=== PATIENT | male | born 1950 | race Caucasian/White ===

== ENCOUNTER 2019-02-17 17:20 | Inpatient (IN) | payer OTHER ==
[~2019-02-17] VITALS: Ht 188 cm; Wt 129.3 kg
--- NOTE | 2019-02-17 | NUR ---
DR MEDEROS @ BEDSIDE. NURSING UPDATES. POC DISCUSSED. NEW ORDERS IMPLEMENTED PER INEZ NAQVI. VANCO IV DAILY W/ PO VANCO Q6H. D/C LEVOQUINN.
--- NOTE | 2019-02-17 11:30 | NUR ---
PT W/ COUGH W/ SCANT SECRETIONS. SECRETIONS BROWN/COFFEE GROUND IN COLOR. WILL ENDORSE.
--- NOTE | 2019-02-17 17:24 | NUR ---
PT BIBA FROM [facility] FOR ALOC. PER MEDIC, STAFF STATED THAT PT WAS LAST SEEN NORMAL AT 2100 LAST NIGHT. PT TODAY WAS FOUND AT APPROX 1600 WITH ALOC AND COMBATIVE WITH STAFF. PER MEDIC, FACILITY CALLED FOR BLS TRANSPORT TO HOSPITAL. PER MEDIC, UPON ARRIVAL PT WAS HYPOTENSIVE WITH SYSTOLIC IN 70'S AND O2 AT 76% ON RA. 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 PER MEDIC, STAFF STATED THAT PT HAD TWO EPISODES OF VOMITING WITH DARK, COFFEE, GROUND LIKE SUBSTANCE. PT ARRIVED AND IS UNABLE TO KEEP HIS EYES OPEN. WHEN ASKED PT QUESTIONS, HE CONTINUALLY SAYS NO; PT UNABLE TO FOLLOW COMMANDS. PUPILS ARE SLUGGISH AT 2MM; CONNECTED TO FULL CARDAIC MONITOR, O2.
--- NOTE | 2019-02-17 17:33 | NUR ---
RT AT BEDSIDE
[2019-02-17 17:59] LABS: BASOPHIL % 0.3 % (0-2); PLATELET COUNT 262 x10^3mcL (130-400)
[2019-02-17 18:00] LABS: RED CELL DISTRIBUTION WIDTH 21.7 % (11.5-14.5)
--- NOTE | 2019-02-17 18:10 | NUR ---
XRAY AT BEDSIDE
[2019-02-17 18:18] LABS: BILIRUBIN TOTAL 0.7 mg/dL (0.20-1.00); POTASSIUM SERUM 3.1 mmol/L (3.5-5.1); TOTAL PROTEIN, SERUM 7.3 g/dL (6.4-8.2)
[2019-02-17 18:24] LABS: ALBUMIN 2.5 g/dL (3.4-5.0); CARBON DIOXIDE 7.9 mmol/L (21-32); CREATININE SERUM 8.2 mg/dL (0.7-1.3)
--- NOTE | 2019-02-17 18:47 | NUR ---
PT PLACED IN PLACED IN [place]; AWARE
--- NOTE | 2019-02-17 18:57 | NUR ---
MAT PRIMARY RN AWARE OF PT CONDITION
--- NOTE | 2019-02-17 19:03 | NUR ---
MD REYES AT BEDSIDE TO SPEAK WITH PT'S ABOUT CENTRAL LINE.
--- NOTE | 2019-02-17 19:10 | NUR ---
PT TO CT VIA [facility] AT THIS TIME.
--- NOTE | 2019-02-17 19:12 | NUR ---
PT SIGNED CONSENT FOR CENTRAL LINE PLACEMENT AND VERBALIZED NO QUESTIONS OR CONCERNS AT THIS TIME
[2019-02-17 19:45] LABS: UA SPECIFIC GRAVITY >=1.030 (1.005-1.035); microscopic required? YES; urine erythrocyte 2+ (NEGATIVE)
--- NOTE | 2019-02-17 19:59 | NUR ---
CENTRAL LINE IN PLACE, PATENT AND INTACT.
--- NOTE | 2019-02-17 20:05 | NUR ---
XRAY AT BESIDE TO CONFIRM CENTRAL LINE PLACEMENT.
--- NOTE | 2019-02-17 20:39 | NUR ---
ASKED PT IF HE IS IN ANY PAIN, PT SHOUTED "NO!" REMAINS AT BEDISDE, CALL LIGHT IN REACH PT AND EDUCATED ON HOW TO USE. FLUIDS INFUSING AT THIS TIME. CENTRAL LINE PATENT AND INTACT.
--- NOTE | 2019-02-17 20:48 | NUR ---
REPORT GIVEN TO INEZ MCGRATH TO ASSUME CARE.
--- NOTE | 2019-02-17 20:50 | NUR ---
RECIEVED REPORT FROM ED RN. AWAITING PT ARRIVAL.
[2019-02-17 20:53] LABS: T3 TOTAL 0.72 ng/mL
[2019-02-17] MEDS ORDERED: VASOTEC20 MG PO (20:53)
[2019-02-17] MEDS ORDERED: METFORMIN HYDR500 M1 PO (20:54)
[2019-02-17] MEDS ORDERED: HYDROCHLOROTH12.5 M2 PO (20:54)
[2019-02-17] MEDS ORDERED: PROTONIX20 MG PO (20:54)
[2019-02-17] MEDS ORDERED: TENORMIN50 MG PO (20:54)
[2019-02-17 21:07] LABS: AMPHETAMINE QUAL UR NONE DETECTED (See below)
[2019-02-17 21:14] LABS: FREE T4 1.35 ng/dL (0.76-1.46); FREE THYROXINE INDEX 2.5 ug/dL (1.4-4.5); T4(THYROXINE) 6.4 ug/dL (4.7-13.3)
--- NOTE | 2019-02-17 22:07 | NUR ---
DOPAMINE STARTED AT 10MCG PER MD ORDER.
--- NOTE | 2019-02-17 22:19 | NUR ---
PT RESP E/U WITH EYES CLOSED; PT REMAINS CONNECTED TO FULL CM. NO DISTRESS. AT BEDSIDE. CENTRAL LINE PATENT; INTACT.
[2019-02-17 22:40] LABS: CHOLESTEROL/HDL RATIO 5.2
[2019-02-17 22:43] LABS: PHOSPHOROUS 10.3 mg/dL (2.5-4.9)
--- NOTE | 2019-02-17 23:00 | NUR ---
PT ARRIVED FROM ED ACCOMPANIED BY RN+EMT. NURSING UPDATES. TRANSFERED CARE OF PT. A&OX2. UNABLE TO FOLLOW COMMANDS. SPEECH GARBLED. PERRL 3MM GENEVIEVE. LUNG SOUNDS UNABLE TO AUSC PER DISTANT. BREATHING EVEN AND LABORED. PT ON RA @ 97%. EENT FREE OF DISCHARGE. HEART SOUNDS DISTANT. HR 111. BP 153/115(122). NO S/S OF CHEST PAIN. PULSES WEAK X4 EXTREMETIES. SKIN COOL/DRY. NO EDEMA NOTED DOPA INSUFING @ 10MCG/KG/MIN. NS INFUSING @ 100ML/HR. BS ACTIVE X4Q. ABD OBESE. SKIN COOL AND DRY. HX R FOOT ULCER DRESSING C/D/I. FAMILY @ BEDSIDE.
--- NOTE | 2019-02-17 23:54 | NUR ---
DR MEDEROS @ BEDSIDE. NURSING UPDATES. POC DISCUSSED. AWAITING ORDERS.
[2019-02-18] VITALS (7 sets, daily range): BP systolic 89–153; BP diastolic 50–115
--- NOTE | 2019-02-18 01:00 | NUR ---
PT AGITATED AND VERBAL HARASSMENT. CALMING MEASURES IMPLEMENTED. PT CALMED DOWN. WILL CONT TO MONITOR.
--- NOTE | 2019-02-18 01:30 | NUR ---
PT REFUSED ORAL VANCO. DISCUSSED REASONING AND IMPORTANCE FOR MEDICATION. PT STILL REFUSED. WILL ENDORSE.
--- NOTE | 2019-02-18 04:55 | NUR ---
COMMERCIAL COLLECTIONS DRIVER @ BEDSIDE FOR AM LABS.
--- NOTE | 2019-02-18 05:00 | NUR ---
NOTIFIED OF CDIFF PRECAUTIONS. SHE STATED SHE KNOWS THE PRECAUTIONS AND INFORMED FOR CDIFF. NOTED AND WILL ENDORSE. STATED SHE WOULD SIT NEXT TO HIM W/O PPE AND USE IT WHEN INVOLVED IN CARE.
[2019-02-18 05:04] LABS: PLATELET COUNT 267 x10^3mcL (130-400)
[2019-02-18 05:15] LABS: BAND NEUTROPHIL 2 % (0-10); MONOCYTE 5 % (0-7); SEGMENTED NEUTROPHILS 86 % (37-75)
[2019-02-18 05:19] LABS: acanthocyte (spur cell) 1+; rbc morphology (normal/abnorm) ABNORMAL (NORMAL)
[2019-02-18 05:24] LABS: RED CELL DISTRIBUTION WIDTH 20.9 % (11.5-14.5)
[2019-02-18 05:59] LABS: CALCIUM 7.3 mg/dL (8.5-10.1); MAGNESIUM 1.8 mg/dL (1.8-2.4); PHOSPHOROUS 8.8 mg/dL (2.5-4.9)
[2019-02-18 06:01] LABS: POTASSIUM SERUM 2.6 mmol/L (3.5-5.1)
--- NOTE | 2019-02-18 06:02 | NUR ---
NOTIFIED PER LAB K+ 2.6, CO2 9.0, BUN 106, CREAT 8.0. DR GUZMAN MADE AWARE. AWAITING NEW ORDERS.
--- NOTE | 2019-02-18 06:22 | NUR ---
DR GUZMAN @ BEDSIDE. NURSING UPDATES. AWAITING NEW ORDERS.
--- NOTE | 2019-02-18 07:35 | NUR ---
SPOKE WITH DR GLOVER VIA TELEPHONE AND READ BACK CURRENT ORDERS.
--- NOTE | 2019-02-18 07:36 | NUR ---
US TECH AT BEDSIDE PERFORMED US BLE SUMAN AND US RENAL. PT'S AT BEDSIDE. PT IS ABLE TO FOLLOW SIMPLE COMMAND.
--- NOTE | 2019-02-18 08:15 | NUR ---
PADIATRISTS AT BEDSIDE ASSESSING PT'S WOUND ON LEFT HEEL AND CHANGING DRESSING, BLE COLD, PEDAL PULSES WEAK WITH DOPLER. PT COUGHED OUT SMALL AMOUNT EMESIS, CLEAN WITH SUCTION, RED BROWN COLOR.
--- NOTE | 2019-02-18 12:15 | NUR ---
PT'S BP 118/63 (81), 93 BPM, LOWER DOPAMINE FROM 10 MCG/KG /HR TO 8MCG. REST WELL, EASILY AROUSED WITH VERBAL AND EYES OPENING RESPONSE. PT VERBALLY REFUSED TO TAKE VANCO PO. PT'S AT BEDSIDE. PT HAD BM, DARK BROWN, LOOSE. STOOL SPECIMEN COLLECTED FOR STOOL CX.
--- NOTE | 2019-02-18 14:15 | NUR ---
ROSS RN ATTEMPTING TO PROVIDED PATIENT WITH ORAL MEDICATIONS. PATIENT TELLING ROSS TO "SHUT THE FUCK UP" SHE WAS EDUCATING PATIENT THE NEED FOR TAKING MEDICATIONS. I ENTERED ROOM AND ASKED PATIENT NOT TO USE FOUL LANGUAGE WITH NURSING STAFF THEY ARE ATTEMPTING TO HELP HIM. PATIENT DIRECTED HIS GAZE AT ME AND STATED "SHUT THE FUCK UP AND GET OUT OF MY ROOM." ATTEMPTED TO EDUCATE PATIENT REGARDING USE OF LANGUAGE AND PATIENT CONTINUED TO REFUSE MEDICATION AND USE FOUL LANGUAGE UNTIL NURSING LEFT THE ROOM.
--- NOTE | 2019-02-18 14:35 | NUR ---
DR GLOVER AT BEDSIDE TO ASSESS PATIENT. PATIENT UPDATES PROVIDED BY NURSING. NO FAMILY AT BEDSIDE.
--- NOTE | 2019-02-18 15:24 | NUR ---
PATIENT HAS REMOVED CARDIAC MONITORING EQUIPMENT AGAIN. WHEN IN TO ROOM AND ATTEMPTED TO PLACE NEW LEADS AND PULSE OXIMETRY ON PATIENT. I PLACED THE LEADS BACK ON, PATIENT REMOVED THEM ONE BY ONE. EDUCATION PROVIDED REGARDING DONNING CARDIAC EQUIPMENT AND PATIENT TOLD ME TO "SHUT THE FUCK UP." DR Daniels MADE AWARE.
[2019-02-18 15:36] LABS: CALCIUM 6.2 mg/dL (8.5-10.1); CARBON DIOXIDE 10.1 mmol/L (21-32)
[2019-02-18 15:47] LABS: POTASSIUM SERUM 2.7 mmol/L (3.5-5.1)
[2019-02-18 15:48] LABS: CREATININE SERUM 7.6 mg/dL (0.7-1.3)
--- NOTE | 2019-02-18 15:52 | NUR ---
PT GETTING MORE RESTLESS, PULLED OUT TWO PERIPHERAL IV LINES. REORIENTED PT BUT NOT WORK. PT TRYING TO PULL CHAN CATHETER. GENEVIEVE HAND MITTEN APPLED AT THIS TIME. PT'S BP 113/68. TITRADED DOPAMINE FROM 8MCG/KG TO 6 MCG/KG/HR. PT KEEP REMOVING HR MONITOR LEADS AND PULSE OX SEVERAL TIMES AFTER EACH TIMES EDUCATION. PT SAYING "GET OUT MY ROOM, SHUT UP." EVERYTIME.
--- NOTE | 2019-02-18 17:32 | NUR ---
PT'S BP 85/55 MAP 61, TITRATE UP DOPAMINE FROM 6MCG/KG/MIN TO 8MCH/KG/MIN.
--- NOTE | 2019-02-18 19:19 | NUR ---
REPORT GIVEN TO RECEIVING NURSE. PT REST ON BED, REFUSED TO PUT TELE MONIOTR BACK ON. PT BREATHING ON RA EVEN, UNLABORED. DOPAMINE IS INFUSING AT 8MCG/KG/MIN AT THIS TIME. IVF D5 1/2NS 20MEQ KCL WITH BICAR INFUSING AT 100ML/HR. URINE OUTPUT 150ML, TIM.
--- NOTE | 2019-02-18 19:20 | NUR ---
RECEIVED REPORT FROM ROSS WILEY. WILL RESUME CARE.
--- NOTE | 2019-02-18 20:56 | NUR ---
PT NONCOMPLIANT WITH TAKING ORAL MEDICATION, MIDODRINE 10MG PO. MADE PT AWARE OF RISKS/BENEFITS. PT STILL REFUSED AND AGITATED SAYING "LEAVE ME ALONE".
--- NOTE | 2019-02-19 00:06 | NUR ---
PT PULLING OFF STRIKE OUT MACHINE OPERATOR LEADS. MULTIPLE ATTEMPTS MADE TO PLACE NEW ONES ON AND PT CONTINUES TO PULL THEM OFF. EXPLAINED IMPORTANCE OF THEM TO PT AND PT STATES "I DON'T CARE".
--- NOTE | 2019-02-19 03:11 | NUR ---
DOPAMINE GTT TITRATED DOWN FROM 8MCG/KG/MIN TO 6MCG/KG/MIN. BP 106/73. MAP 84.
[2019-02-19 03:17] VITALS: BP 106/73
--- NOTE | 2019-02-19 04:05 | NUR ---
PULP MAKER AT BEDSIDE FOR BLOOD DRAW.
[2019-02-19 04:35] LABS: BASOPHIL % 0.2 % (0-2); PLATELET COUNT 166 x10^3mcL (130-400)
[2019-02-19 04:47] LABS: CALCIUM 6.7 mg/dL (8.5-10.1); CARBON DIOXIDE 12.7 mmol/L (21-32); MAGNESIUM 1.6 mg/dL (1.8-2.4); PHOSPHOROUS 5.5 mg/dL (2.5-4.9)
[2019-02-19 04:49] LABS: ALBUMIN 2.4 g/dL (3.4-5.0)
[2019-02-19 04:50] LABS: CREATININE SERUM 6.8 mg/dL (0.7-1.3); POTASSIUM SERUM 2.7 mmol/L (3.5-5.1)
[2019-02-19 04:57] LABS: RED CELL DISTRIBUTION WIDTH 21.1 % (11.5-14.5)
--- NOTE | 2019-02-19 06:00 | NUR ---
DR. GUZMAN AT BEDSIDE ASSESSING PT. UPDATES PROVIDED. MADE AWARE OF LAB VALUES K+ 2.7, BUN 107, CREAT 6.8.
--- NOTE | 2019-02-19 06:24 | NUR ---
CHEST X-RAY BEING DONE AT BEDSIDE.
--- NOTE | 2019-02-19 07:08 | NUR ---
GAVE REPORT TO CHACHA WILEY. ALL QUESTIONS AND CONCERNS ADDRESSED.
[2019-02-19 07:15] VITALS: BP 107/56
--- NOTE | 2019-02-19 07:15 | NUR ---
THE PATIENT LETHARGIC; CLOSING EYES. PATIENT RESPONSIVE TO VERBAL STIMULI WITH GARBLED SPEECH. PATIENT DISORIENTED AT THIS TIME. PATIENT AGGRESSIVE AND COMBATIVE TO THE STAFF. PATIENT REFUSES TO HAVE FULL ASSESSMENT. UNABLE TO CHECK PUPILS AT THIS TIME. CVC TO RIGHT IJ WITH DRESSING IN PLACE. PATIENT IS ON D5 1/2NS WITH 20 MEQ KCL AND SODIUM BICARB 1000ML AT 100ML/HR. AND DOPAMINE AT 6MCG/KG/MIN. CVP 6. TELE # 4 WITH AFIB READING AT THIS TIME. CHAN CATH TO GRAVITY DRAINING YELLOW URINE. OPTIFOAM TO SACRAL-BUTTOCK AREA. DRESSING TO RIGHT HEEL INTACT. HEEL PROTECTORS TO BOTH HEELS. CALL LIGHT WITHIN REACH. SIDE RAILS UP X3. BED IS AT LOWEST POSITION. THE IS AT BEDSIDE.
--- NOTE | 2019-02-19 10:00 | NUR ---
DR. MARQUEZ AND THE TEAM ARE AT BEDSIDE SEEING THE PATIENT. DR. MARQUEZ IS EXPLAINING THE POC TO THE AT BEDSIDE. CONCERNS ADDRESSED.
--- NOTE | 2019-02-19 10:11 | NUR ---
SPOKE WITH DR GLOVER VIA TELEPHONED. NEW ORDERS RECEIVED AND READ BACK. ENDORSED TO DR. Daniels WHO WILL INPUT ORDERS.
--- NOTE | 2019-02-19 10:17 | NUR ---
PT WAS SEEN FOR DYSPHAGIA. PT WAS ABLE TO SAFELY SWALLOW PUREE DIET WITH NECTAR THICK LIQUIDI. PT HAD MILD COUGH FOR THIN LIQUID. RECOMMENDATION PUREE DIET WITH NECTAR THICK LIQUID SMALL BITES AND SIPS 1:1 SUPERVISION.
[2019-02-19 11:30] VITALS: BP 100/67
--- NOTE | 2019-02-19 12:56 | NUR ---
ATTEMPTING TO EXPLAIN THE EFFECTS OF VANCO, PHOSLO AND MIDODRINE PO AND ENCOURAGING THE PATIENT TO TAKE THE MEDS BUT THE PATIENT REFUSED TO TAKE THEM AND SAID, "SHUT UP. GET OUT." THE , BRIDGET IS AT BEDSIDE AND WITNESSED THIS.
--- NOTE | 2019-02-19 13:30 | NUR ---
THE PATIENT FOUND PICKING TO HIS PENILE AREA SEVERAL TIMES SINCE THIS MORNING.
--- NOTE | 2019-02-19 13:30 | NUR ---
THE PHARMCY WAS CALLED TWICE AND REQUESTED FOR SODIUM BICARB IN 1/2NS 250ML TO ADMINISTER TO THE PATIENT BECAUSE THE FIRST DOSE SHOULD BE AT 1200. DONNA, THE SECURITY SYSTEMS SALES REPRESENTATIVE SAID, "THE MED WILL BE DELIVERED WHEN IT IS AVAILABLE." THE MED JUST WAS DELIVERED AT 1322. THE MED WAS MIXED AND GIVEN TO THE PATIENT AT 1330 FOR THE 1ST DOSE. PHARMACISTIVAN WAS MADE AWARE.
--- NOTE | 2019-02-19 15:02 | NUR ---
THE BP 108/66 AND MAP 80; DOPAMINE DRIP WAS TITRATED FROM 6MCG/KG/MIN DOWN TO 4MCG/KG/MIN.
--- NOTE | 2019-02-19 15:30 | NUR ---
ENDORSE CARE TO RHYS BARTHOLOMEW RN.
[2019-02-19 16:00] VITALS: BP 95/49
--- NOTE | 2019-02-19 16:00 | NUR ---
PATIENT WAS CLEANSED AND GIVEN A BED BATH. PHOTOGRAPH OF SACRAL BUTTOCK AND PERIANAL AREAS WAS TAKEN; THE SITE WERE CLEANSED WITH WOUND CLEANSER, Z-GUARD APPLIED BEFORE NEW OPTIFOAM APPLIED. ABDOMINAL FOLD AND INGUINAL WITH REDNESS AND EXCORIATION: PHOTOGRAPH TAKEN, THE SITE WAS CLEANSED AND INTERDRY APPLIED. ISOGEL MATTRESS SET UP FOR THE PATIENT.
--- NOTE | 2019-02-19 16:02 | NUR ---
NURSING STAFF CHACAH AND STEFF ATTEMPTING TO CLEAN PATIENT HE IS SOILD WITH STOOL. PATIENT REFUSING TO ALLOW NURSING TO CHANGE PATIENT. EDUCATION PROVIDED REGARDING SKIN BREAKDOWN BUT PATIENT REFUSING TO LISTEN CURSING AT STAFF. I SPOKE WITH PATIENT AND HE CONNTINUED TO BE BELIGERENT, CURSING AT MYSELF AND NURSING. NURSING WAS ABLE TO DISTRACT PATIENT LONG ENOUGH TO CLEAN STOOL AND PROVIDE PERICARE. Z-GUARD AND OPTIFOAM PLACED ON SACRAL/BUTTOCK REGION D/T IMPAIRED SKIN INTEGRITY.
--- NOTE | 2019-02-19 16:55 | NUR ---
DR GLOVER PRESENT AT BEDSIDE. UPDATED ON PT CURRENT STATUS.
[2019-02-19 17:36] LABS: CALCIUM 6.7 mg/dL (8.5-10.1); CARBON DIOXIDE 12.9 mmol/L (21-32)
[2019-02-19 17:44] LABS: POTASSIUM SERUM 2.6 mmol/L (3.5-5.1)
[2019-02-19 17:45] LABS: CREATININE SERUM 6.1 mg/dL (0.7-1.3)
--- NOTE | 2019-02-19 18:00 | NUR ---
BP 107/61 (78), HR 92, DOPAMINE TITRATED DOWN TO 2MCG/KG/MIN
--- NOTE | 2019-02-19 18:30 | NUR ---
DR FREEMAN PRESENT AT BEDSIDE DISCUSSING POC. UPDATED ON PT CURRENT STATUS, ALL QUESTIONS ANSWERED
--- NOTE | 2019-02-19 19:08 | NUR ---
RECEIVED REPORT FROM CHACHA WILEY. WILL RESUME CARE.
[2019-02-19 19:25] VITALS: BP 104/47
--- NOTE | 2019-02-19 19:25 | NUR ---
RECEIVED PT LETHARGIC. AAOX1 TO PERSON. PT IS NONCOMPLIANT WITH CARE AT TIMES AND COMBATIVE. BREATHING E/U. LUNG SOUNDS CONGESTED AND DIMINISHED TO LOWER LOBES. ON RA, 02SAT 100%. S1S2 AUSCULATED WITH NO MURMURS NOTED. A FIB ON FISH HOUSEKEEPER. DOPAMINE GTT AT 2MG/KG/MIN. D5 1/2 NS/KCL 20MEQ/SODIUM BICARB RUNNING AT 100CC/HR. RIJ CVC TRIPLE LUMEN PATENT AND INTACT, DRESSING CDI. CAP REFILL < 3 SEC. PULSES MODERATE TO BUE AND WEAK TO BLE. R HEEL ULCER, DRESSING CDI. OPTIFOAM TO SACRUM, CDI. REDNESS AND SKIN BREAKDOWN NOTED TO ABDOMINAL FOLDS, Z GUARD APPLIED AND INTERDRY IN PLACE. BOLSTER BOOTS TO BLE. BED IN LOW POSITION. BONY PROMINENCES OFFLOADED. CALL LIGHT WITHIN REACH. WILL CONTINUE TO MONITOR.
[2019-02-19 23:21] VITALS: BP 102/54
[2019-02-20] VITALS (7 sets, daily range): BP systolic 90–109; BP diastolic 53–64
--- NOTE | 2019-02-20 02:30 | NUR ---
LAB CALLED, PT TESTED POSITIVE FOR MRSA. DR. AC MADE AWARE.
--- NOTE | 2019-02-20 04:20 | NUR ---
PT HAD LARGE LOOSE DARK BROWN BM. PT CLEANED AND ALL LINENS CHANGED. CHAN CATHETER CARE PROVIDED. 650CC OF URINE OUTPUT NOTED. CHG WIPES TO RIJ. PT REFUSING TO LET ME PROVIDE ORAL CARE. FLOATED ON PILLOWS. BOLSTER BOOTS TO BLE. BED IN LOW POSITION. CALL LIGHT WITHIN REACH.
--- NOTE | 2019-02-20 04:35 | NUR ---
COAL DRIER OPERATOR AT BEDSIDE FOR BLOOD DRAW.
[2019-02-20 04:43] LABS: BASOPHIL % 0.2 % (0-2)
[2019-02-20 04:49] LABS: PLATELET COUNT 122 x10^3mcL (130-400); RED CELL DISTRIBUTION WIDTH 22.6 % (11.5-14.5)
[2019-02-20 05:01] LABS: CALCIUM 6.7 mg/dL (8.5-10.1); CARBON DIOXIDE 18.2 mmol/L (21-32); MAGNESIUM 1.3 mg/dL (1.8-2.4); PHOSPHOROUS 3.6 mg/dL (2.5-4.9)
[2019-02-20 05:27] LABS: CREATININE SERUM 5.4 mg/dL (0.7-1.3); POTASSIUM SERUM 2.7 mmol/L (3.5-5.1)
--- NOTE | 2019-02-20 06:00 | NUR ---
DR. GUZMAN AT BEDSIDE ASSESSING PT. UPDATES PROVIDED.
--- NOTE | 2019-02-20 07:08 | NUR ---
GAVE REPORT TO EDWIGE WILEY. ALL QUESTIONS AND CONCERNS ADDRESSED.
--- NOTE | 2019-02-20 07:10 | NUR ---
RECEIVED PT RESTING BUT EASILY AROUSABLE. AT BEDSIDE. AAOX2. LETHARGIC BUT AGGRESSIVE AND COMBATIVE. SPEECH CLEAR. PERRL. RIJ TLC CVC INTACT, X3 PORTS PATENT, DRESSING CDI. TRACHEA MIDLINE. NO JVD PRESENT. ON ROOM AIR. RESPS ARE E/U. SYMMETRICAL CHEST WALL EXPANSION NOTED. MUCOUS CONGESTED COUGH AUDIBLE. NO S/S OF RESP DISTRESS. AFIB ON MOBILE SALES EXPERT. SKIN IS COOL/DRY TO TOUCH, COLOR CONSISTENT WITH ETHNICITY. PT MORBIDLY OBESE. ABD IS LARGE, ROUNDED, NONTENDER. UMBILICAL HERNIA NOTED. F/C INTACT AND DRAINING VIA GRAVITY. URINE IS TIM IN COLOR. NO SCROTAL EDEMA NOTED. INVERTED PENIS NOTED. STAGE 3 ULCER TO SACRALCOCCYX AREA WITH OPTIFOAM IN PLACE. ECCHYMOSIS TO BUE. DIABETIC R HEEL ULCER NOTED WITH DRESSING CDI. ERYTHEMA TO ABD FOLDS WITH INTERDRY APPLIED. HEEL PROTECTOR BOOTS APPLIED, ISOGEL MATTRESS IN USE, BED IN LOWEST POSITION, X3 SIDE RAILS UP, CALL LIGHT WITHIN REACH.
--- NOTE | 2019-02-20 07:10 | NUR ---
RECEIVED REPORT FROM APARNA WILEY. ALL QUESTIONS AND CONCERNS ADDRESSED. WILL RESUME CARE OF PT.
--- NOTE | 2019-02-20 08:24 | NUR ---
ASKED PT IF HE IS ABLE TO TAKE HIS MEDICATIONS AND HE SLOWLY STATED "NO". AT BEDSIDE AND COMMUNICATED TO HER THE IMPORTANCE OF THE PO MEDICATIONS. SHE IS AWARE AND STATED THAT "HE WILL NOT TAKE ANY PO MEDICATIONS. HE WILL JUST THROW THEM UP AND START GAGGING. I DON'T WANT HIM TO TAKE THEM." PT AND PT'S EDUCATED OF IMPORTANCE OF MEDICATIONS AND THE RISKS OF NOT TAKING THEM. PT'S VERBALLY STATED UNDERSTANDING.
--- NOTE | 2019-02-20 08:35 | NUR ---
DOPAMINE TURED OFF AT THIS TIME. PT BP MAP OF 80.
--- NOTE | 2019-02-20 09:43 | NUR ---
INITIATED DOPAMINE GTT @ 2 MCG/KG/MIN TO ACHEIEVE MAP OF 65. . PT'S BP OF 91/51 (58).
--- NOTE | 2019-02-20 10:01 | NUR ---
DR. MARQUEZ AND RESIDENTS AT BEDSIDE. ALL QUESTIONS AND CONCERNS ADDRESSED. NO NEW ORDERS AT THIS TIME.
--- NOTE | 2019-02-20 11:39 | NUR ---
DR. RICH AT BEDSIDE ASSESSING PT. UPDATES PROVIDED. LAYLA STATES FOR CVP TO BE DISCONTINUED. AND ONCE DOPAMINE GTT IS ABLE TO BE TITRATED OFF, PT IS ABLE TO GO UPSTAIRS. WILL CARRY OUT ORDERS.
--- NOTE | 2019-02-20 12:00 | NUR ---
TITRATED DOPAMINE GTT TO 1 MCG/KG/MIN TO ACHEIVE MAP OF 65. PT'S MAP OF 83.
--- NOTE | 2019-02-20 12:11 | NUR ---
Initial Nutrition Assessment: IC04/A ROBERT MURPHY HR Dx: Sepsis, PNA, Acute renal failure PMHx: HTN, DM, GERD, CKD Stage IIIa PSHx: Other, Exploratory Laparotomy for intussusception at 1 years old Labs: K 2.7L, BG 155H, BUN 96H, CREAT 5.4H, Ammonia 44H, WBC 11.3H Meds: D 50%, Flagyl, humulin, Pepcid, phoslo, zofran Diet: NPO (risk for aspiration) since 02/18 PO Intake: NPO Ht: 187.96 cm (74") Wt: 273 kg (600#) BMI: 77.5 kg/m2 (morbid obesity) Bed scale: 273.9 kg IBW: 190# (86 kg) %IBW: 315 UBW: unable to access Age: 68/M Food Allergies: NKFA Skin: erythema to sacral-buttock area, R heel ulcer wrapped w/ dressing Clyde: 13 Edema: none GI: Last BM: 02/20 Per H&P, Pt is a 68 yoM with PMH of HTN, DM, GERD, and CKD Stage IIIa, came with cc of Altered Mental Status. Pt was BIBA from Health system yesterday evening. Pt's stated that Pt was altered since yesterday morning. Pt has not been eating much the past 1 month with only clear liquids for the past week. RDN Visit (02/20): Patient was sleeping. Per RN, Pt. does not have any N/V but has diarrhea as he is C.diff positive. Per FAUCET POLISHER note (02/19), Pt is cleared for puree diet with nectar thick liquid. Per RN and Dr. Alarcon, pt is refusing to eat any food and pt. may be feed through NG tube feeding. Per progress note (02/20), Pt refusing all PO medications, pulling cardiac monitoring, abusive with nursing staff. Problem with: N/V/D/C: diarrhea d/t c.diff Problems with: Chewing/Swallowing: yes (FAUCET POLISHER recommended puree w/ nectar thick) Current appetite: unable to access Recent wt change: unable to access %wt change: n/a Vitamin/Supplement use: unable to access Special diet at home: unable to access Physical activity: unable to access Nutrition education given: not possible at this time as pt is sleeping, NPO Food-drug interactions: none Education given: n/a Estimated Nutritional Needs Based on adjusted body weight 132 kg Energy: 9297-1045 kcal/d (25-30 kcal/kg) Protein: 79-105 g/d (0.6-0.8 g/kg) - CKD stage 3 Fluid: per doctor Nutrition Diagnosis 1. Inadequate oral intake related to possible poor appetite as evidenced by pt. refusing to eat, NPO status. 2. Morbid obesity related to increased energy intake as evidenced by BMI 77.5 kg/m2. Intervention 1. Recommend tube feeding Vital AF 1.2 @ 10 ml/hr with goal of 70ml/hr. Advance by 10 ml Q 4H. FWF 200ml Q4H or per MD. This will provide 2020 kcal and 126g protein. Discussed recommendations with Dr. Alarcon. Monitor/Evaluate Goal: PO intake at least 75% of estimated needs Monitor: PO intake, Labs, GI function F/U in 2-3 days as high risk 02/22-
--- NOTE | 2019-02-20 12:26 | NUR ---
DR. ODOM AT BEDSIDE ASSESSING PT. HE SPOKE TO PT'S ABOUT POC AND CONDITION OF PT AND THE NEED FOR DIALYSIS SINCE PT IS NOT URINATING MUCH. PT'S DENIES HD AT THIS TIME.
--- NOTE | 2019-02-20 12:51 | NUR ---
FIRST 20 MEQ K-RIDER GIVEN AT THIS TIME FOR K+ REPLACEMENT
--- NOTE | 2019-02-20 13:25 | NUR ---
RT AT BEDSIDE FOR BREATHING TX. PT BECOMING COMBATIVE AND AGGRESSIVE AND TAKING OFF EQUIPMENT. PT REFUSING TREATMENT AGAIN.
--- NOTE | 2019-02-20 15:15 | NUR ---
SAW WARP TYING MACHINE TENDER, JOSE RN, AND EDWIGE RN AT BEDSIDE TO HELP CLEAN PT. PT HAD A MODERATE DARK BROWN GEL-LIKE STOOL. NEW OPTIFOAM PUT IN PLACE, ZGUARD APPLIED TO BUTTOCKS, SHEETS AND CHUCKS CHANGED, CHG WIPES APPLIED, CHAN CARE COMPLETED. PT TOLERATED WELL. HOWEVER, PT VERY RESTLESS AND COMBATIVE TELLING NURSES TO "GET THE F*CK AWAY FROM ME." AND TO "SHUT THE F*CK UP".
--- NOTE | 2019-02-20 15:35 | NUR ---
SPOKE TO DR. JANKI Sanders AND DR. POPE TO CLARIFY ORDER FOR RIGHT HEEL WOUND.
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
--- NOTE | 2019-02-20 16:03 | NUR ---
PT REFUSING TO HAVE BLOOD SUGAR CHECKED, REFUSING TO PUT BACK O2 SAT MONITOR, AND REFUSING TO TAKE HIS PHOSLO MEDICATION. DR. GUZMAN MADE AWARE OF PT'S STATUS AND REFUSAL OF CARE. NO NEW ORDERS AT THIS TIME.
--- NOTE | 2019-02-20 16:21 | NUR ---
WOUND CARE EVALUATION NOTE: REASON FOR EVALUATION: RIGHT HEEL ULCER SKIN ASSESSMENT DONE WITH THIS 68 Y/O MALE PT. ADMITTED FROM [facility] TO [facility] [place] WITH INITIAL DX OF AMS. PAST HX INCLUDES, HTN, DM, GERD CKD AND RIGHT HEEL DIABETIC FOOT ULCER WITH S/P DEBRIDEMENT. PT ADMITTED WITH PRESSURE ULCER STAGE 3 TO SACRALCOCCYX AREA. ALL ABOVE INFORMATION OBTAINED FROM ADMISSION H&P. AND . IS AAX4. PT IS RESTLESS AND REQUIRE 4 PERSONS ASSIST FOR TURNING AND POSITIONING. SKIN WARM AND MOIST, INCONTINENT OF LBM X1 DURING ASSESSMENT. MULTIPLE ECCHYMOSIS TO UPPER EXTREMITIES. BLE NO HAIR GROWTH, NO EDEMA. HEEL RAISERS TO BILATERAL HEELS. DORSAL PEDAL PULSES PRESENT. PLAN OF CARE DISCUSSED WITH , AND PRIMARY RN. VERBALIZES UNDERSTANDING, STATED THAT SHE IS AWARE OF PRESSURE ULCER TO SACRALCOCCYX AREA. RIGHT HEEL DIABETIC ULCER NOT ASSESS THIS TIME, PER PRIMARY RN RIGHT HEEL DRESSING CHANGED BY PODIATRY. COMORBIDITIES RELATED TO FURTHER SKIN BREAKS AND DELAY WOUND HEALING INFECTION, ACUTE RENAL FAILURE, LOW ALBUMIN LEVEL, RESTLESS BEHAVIOR /FRICTION TO SKIN AND HOB ELEVATED THE MAJORY OF TIMES DUE TO MEDICAL REASONS. INTEGUMENTARY: -RIJ CENTERAL LINE DRESSING DCI -LEFT HAND MULTIPLE ECCHYMOSIS POSSIBLE FROM BLOOD DRAW -RIGHT CHEST OLD HEALED SCAR -INTERTRIGO TO LOWER ABDOMINAL FOLD SKIN MOIST, REDNESS WITH A SPUERFICIAL OPEN SKIN 0.5X3CM, WOUND BED PINK, MOIST, NO ODOR, DEJUAN WOUND SKIN INTACT WITH REDNESS. -SACRALCOCCYX PRESSURE ULCER STAGE 3, 2X1X0.2 CM, WOUND BED IS 100% GRANULATING TISSUE, MOIST, NO ODOR, DEJUAN-WOUND SKIN DENUDED WITH SURROUNDING REDNESS INDICATED FURTHER DAMAGE -RIGHT HEEL DIABETIC ULCER DRESSING DRY CLEAN AND INPLACE. RECOMMENDATIONS: -PLEASE FOLLOW PODIATRY ORDER FOR RIGHT HEEL CARE -RECTAL BAG FOR MOISTURE CONTROL -CLEANSE ABDOMINAL FOLD WITH SOAP AND WATER, PAT DRY, APPLY INTER DRY CLOTH Q5 DAYS AND PRN IF SOILING. -CLEANSE WITH SOAP AND WATER, PAT DRY, APPLY Z GUARD BID AND PRN IF SOILING TO BUTTOCKS, GROINS, INNER AND POSTERIOR THIGHTS AND PINEAL AREA -CLEANSE SACRALCOCCYX WITH NS. PAT. DRY APPLY THERAHONEY GEL AND COVER WITH OPTIFOAM QD AND PRN IF SOILING -APPLY HEEL RAISERS TO BILATERAL HEELS WHEN IN BED -OFFLOAD BILATERAL HEELS BY PLACING PILLOWS UNDER CALVES UNLESS OTHERWISE CONTRAINDICATED -PRESSURE REDISTRIBUTION SURFACE THERAPY -TURN AND REPOSITION Q2H, OFFLOAD BUTTOCKS AND SACRALCOCCYX -CONTINUE TO FOLLOW RD RECOMMENDATIONS ALL ABOVE RECOMMENDATIONS DISCUSSED WITH PRIMARY RN WILL FOLLOW UP PT Q7-10 DAYS. PLEASE CONTACT WOUND CARE NURSE IF CHANGE OF SKIN CONDITION
--- NOTE | 2019-02-20 17:06 | NUR ---
DOPAMINE GTT TURNED OFF AT THIS TIME. PT'S MAP OF 72.
--- NOTE | 2019-02-20 17:30 | NUR ---
PT RIJ TLC CVC LEAKING FLUID FROM SITE. TRIED TO FLUSH PORTS AND FLUIDS LEAKING SIMULTANEOUSLY. DR. GUZMAN NOTIFIED AND SUGGESTED PICC LINE FOR PT. SPOKE TO PT AND PT'S ABOUT PICC LINE PLACEMENT AND BOTH HAVE AGREED TO IT. CONTACTED PICC LINE NURSE ABOUT SERVICE FOR PT AND STATED THAT THEY WILL CALL THE UNIT BACK WITH AN ESTIMATED TIME OF ARRIVAL. ALL IV FLUIDS AND MEDICATIONS STOPPED AT THIS TIME.
--- NOTE | 2019-02-20 19:04 | NUR ---
GROUP REPORT GIVEN TO CATHERINE WILEY AND SARITA WILEY. ALL QUESTIONS AND CONCERNS ADDRESSED.
--- NOTE | 2019-02-20 19:50 | NUR ---
CALLED PICC RN [facility] SERVICE LINE TO FOLLOW UP WITH PICC LINE PLACEMENT. NO ANSWER AT THIS TIME, MESSAGE WAS LEFT TO FOLLOW UP.
--- NOTE | 2019-02-20 20:24 | NUR ---
RT AT BEDISDE ADMINISTERING BREATHING TREATMENT. PT IS VERY UNCOOPERATIVE AND VERBALLY AGRESSIVE TOWARDS RT. AT BEDSIDE ASSISTING RT IN CALMING PT
--- NOTE | 2019-02-20 20:50 | NUR ---
SPOKE WITH ASIF, PICC LINE RN VIA PHONE AND HE REQUESTED PERMISSION FROM [facility] TO P[ERFORM PROCEDURE. SPOKE WITH DR BYERS AND SHE STATED THAT SHE WILL WAIT UNTIL THE MORNING TO CONTACT DR ODOM AND WILL PERFORM PROCEDURE TOMMOROW MORNING. CONTACTED PICC LINE RN ASIF VIA PHONE AND NOTIFOED HIM THAT THE PROCEDURE WILL BE DELAYED UNTIL TOMORROW AM.
--- NOTE | 2019-02-20 21:08 | NUR ---
PT REFUSED IV AND PO MEDICAITONS. PT REFUSED IV ATTEMPT AND STATED THAT HE DOES NOT WANT TO TAKE ANY MEDICATIONS
--- NOTE | 2019-02-20 23:43 | NUR ---
DR MEDEROS AT BEDSIDE FOR CONSULT. REQUESTED PSYCHIATRIC CONSULT
--- NOTE | 2019-02-20 23:44 | NUR ---
SPOKE WITH DR BYERS AND ADVISED THAT DR MEDEROS REQUEST PSYCHIATRIC CONSULT
--- NOTE | 2019-02-21 04:10 | NUR ---
LAB AT BEDSIDE FOR DRAW
--- NOTE | 2019-02-21 06:09 | NUR ---
PT REFUSED ABG.
[2019-02-21 07:00] VITALS: BP 105/59
--- NOTE | 2019-02-21 07:00 | NUR ---
RECEIVED PT AAOX4. NONCOMPLIANT AND AGGRESSIVE. NO FACIAL DROOP NOTED. SPEECH IS CLEAR. EENT FREE OF DISCHARGE. TRACHEA MIDLINE. RIJ CVC NOT INTACT D/T PT TAKING OUT LINE YESTERDAY. PT REFUSING TO TAKE OUT CENTRAL AT THIS TIME. ON ROOM AIR. RESPIRATIONS ARE EVEN AND UNLABORED. SYMMETRICAL CHEST WALL EXPANSION NOTED. NO S/S OF RESP DISTRESS NOTED. AFIB WITH LBBB AND OCCASSIONAL PVCS NOTED ON MODEL MAKER FIBERGLASS. NO S/S OF CP AT THIS TIME. NO EDEMA NOTED. SKIN IS WARM/DRY TO TOUCH, COLOR CONSISTENT WITH ETHNICITY. PT IS MORBIDLY OBESE. ABD IS LARGE AND ROUNDED. UMBILICAL HERNIA NOTED. F/C INTACT AND DRAINING VIA GRAVITY. URINE IS TIM IN COLOR. NO SCROTAL EDEMA NOTED. ERYTHEMA NOTED TO ABD FOLDS WITH INTERDRY APPLIED. STAGE 3 ULCER TO SACRALCOCCYX WITH OPTIFOAM IN PLACE. R HEEL ULCER NOTED WITH DRESSING CDI. HEEL BOOTS APPLIED TO BLE. PT ON ISOGEL MATTRESS. PT VERY RESISTIVE AND NONCOMPLIANT WITH CARE. AT BEDSIDE.
--- NOTE | 2019-02-21 07:00 | NUR ---
RECEIVED REPORT FROM CATHERINE WILEY. UPDATES PROVIDED, ALL QUESTIONS AND CONCERNS ADDRESSED. WILL RESUME CARE OF PT.
--- NOTE | 2019-02-21 07:30 | NUR ---
UPON ENTERING PT'S ROOM, PT'S NOT WEARING PPE'S. EDUCATED PT'S ON THE IMPORTANCE OF THE USE OF PPE'S DUE TO PT'S C.DIFF AND MRSA DX. PT'S VERBALIZED UNDERSTANDING. HOWEVER, PT'S ROLLED HER EYES AND DID NOT PUT THE GOWN, MASK, OR GLOVES FULLY ON.
[2019-02-21 07:55] VITALS: Ht 188 cm; Wt 129.3 kg
--- NOTE | 2019-02-21 08:34 | NUR ---
PREPARING FOR MED PASS AT THIS TIME. EDUCATED PT ON MEDICATIONS THAT ARE ORDERED FOR THIS MORNING AND THE IMPORTANCE OF THEM. PT REFUSING TO TAKE ALL MEDICATIONS. EDUCATED PT ON THE RISKS OF NOT TAKING THEM AND STILL REFUSING TO TAKE MEDICATIONS. WILL NOTIFY COVERING ATTENDING AND RESIDENTS. WILL CONT TO MONITOR.
--- NOTE | 2019-02-21 09:40 | NUR ---
DR. ODOM AT BEDSIDE ASSESSING PT AND DISCUSSING POC. DISCUSSED IMPORTANCE OF PICC LINE INSERTION TO PT. PT AND BOTH AGREED TO PROCEDURE. PICC LINE TEAM CALLED AND KARIN FROM COMPANY STATED THAT ELVI WILL BE CALLING BACK WITH ESTIMATED TIME OF ARRIVAL WILL BE.
--- NOTE | 2019-02-21 09:55 | NUR ---
DR. GERMAN AND RESIDENTS AT BEDSIDE ASSESSING PT. UPDATES PROVIDED. STATED OK FOR PT TO BE TRANSFERRED UPSTAIRS.
--- NOTE | 2019-02-21 10:05 | NUR ---
DR. GERMAN, RESIDENTS, LAYOUT FORMER AND PRIMARY RN AT BEDSIDE FOR MORNING ROUNDS. PLAN OF CARE DISCUSSED. PT STABLE TO TRANSFER TO [facility] TODAY. WILL CONT TO MONITOR.
--- NOTE | 2019-02-21 10:40 | NUR ---
PT AND PT'S CONTINUE TO REFUSE AM LABS AT THIS TIME DESPITE REPEATED EDUCATION.
--- NOTE | 2019-02-21 11:05 | NUR ---
PER DR. RICH D/C BIPAP ORDER.
[2019-02-21 11:13] VITALS: BP 97/61
--- NOTE | 2019-02-21 11:25 | NUR ---
PICC LINE NURSE CALLED AT THIS TIME ASKING IF DR. ODOM CLEARED PT FOR PICC LINE PLACEMENT. WILL BE ARRIVING SOON.
--- NOTE | 2019-02-21 11:28 | NUR ---
PT REFUSING TO HAVE BLOOD SUGAR CHECKED. EDUCATED PT THE IMPORTANCE AND THE RISKS OF NOT CHECKING BS LEVELS. VERBALIZES UNDERSTANDING. NO S/S OF HYPOGLYCEMIA NOTED. PT AWAKE AND ALERT AND WATCHING TV IN BED WITH AT BEDSIDE. WILL NOTIFY RESIDENTS.
--- NOTE | 2019-02-21 11:58 | NUR ---
DR. RICH REQUESTING TO PUT A PERIPHERAL IV AND A STERILE DRESSING TO [facility] CVC. WENT INTO PT'S ROOM TO SEE THAT HE REMOVED HIS CARDIAC ELECTRODES. EDUCATED PT ON THE IMPORTANCE OF KEEPING THEM ON FOR CARDIAC MONITORING. ASKED PT IF I CAN INSERT A PERIPHERAL IV AND TO PUT A DRESSING ON THE SITE. PT SAID "NO, DO NOT TOUCH ME." DR. RICH NOTIFIED. WILL CONT TO MONITOR.
--- NOTE | 2019-02-21 12:30 | NUR ---
PICC LINE NURSE AT BEDSIDE.
--- NOTE | 2019-02-21 13:15 | NUR ---
PICC LINE INSERTED INTO PT WITH NO COMPLICATIONS WITH US AT BEDSIDE. CXR ORDERED.
--- NOTE | 2019-02-21 13:30 | NUR ---
CXR AT BEDSIDE.
--- NOTE | 2019-02-21 13:45 | NUR ---
PICC LINE NURSE ATTEMPTED TO PUT IN PICC HOWEVER CANNOT GO THROUGH THE SUBCLAVIAN. PICC LINE NURSE INSERTED MIDLINE TO R UPPER ARM AT THIS TIME.
--- NOTE | 2019-02-21 13:51 | NUR ---
PICC LINE NURSE STATES OK TO USE MIDLINE CATH AT THIS TIME.
--- NOTE | 2019-02-21 14:11 | NUR ---
PT AGREED TO TAKE OUT RIJ CENTRAL LINE. CENTRAL LINE REMOVED AT THIS TIME WITH NO COMPLICATIONS. SITE HELD WITH PRESSURE AND 4X4 DRESSIN. MINIMAL BLOOD FROM SITE. DRESSING CDI.
[2019-02-21 15:10] VITALS: BP 118/61
--- NOTE | 2019-02-21 15:54 | NUR ---
REPORT GIVEN TO ROSINA WILEY. ALL QUESTIONS AND CONCERNS ADDRESSED. PT WILL BE GOING TO ROOM 217-B. WILL NOTIFY PT'S .
--- NOTE | 2019-02-21 17:25 | NUR ---
PT SAFELY TRANSPORTED TO [address] [place] [address] VIA ICU BED ACCOMPANIED BY AYUSH ERAZO, PT'S , AND EDWIGE WILEY. NO COMPLICATIONS. NO ACUTE DISTRESS NOTED FROM PT. ROSINA WILEY AND HIDE AND SKIN CLASSER AT BEDSIDE ASSESSING PT. WILL ENDORSE CARE.
--- NOTE | 2019-02-21 17:40 | NUR ---
RECEIVED PT FROM IC VIA [employer]. PT AA/OX4. FOLLOWS COMPLEX COMMANDS, RESPONDS TO VERBAL STIMULI, FACE SYMMETRICAL, SPEECH CLEAR. DENIES PAIN AT THIS TIME. NO N/V. DENIES SOB ON ROOM AIR. VS STABLE. CONGESTED COUGH NOTED. FINE/COARSE CRACKLES HEARD BILATERAL LOBES, DIMINISHED BILATERAL BASES. RR EVEN/SHALLOW/LABORED WITH EXERTION. NO CHEST PAIN, PT ON TELE 30, AFIB WITH BBB AND PVCS. PULSES +2 BUE, WEAK PULSES NOTED BLE. NO EDEMA NOTED. CAP REFILLS <3 SEC BUE/BLE. NO TENTING NOTED. ABDOMEN SOFT, ROUND, NON-DISTENDED. BOWEL SOUNDS ACTIVE. ASPIRATION PRECAUTIONS IN PLACE. HOB ELEVATED >45 DEGREES. HAD BM X 1 TODAY. CHAN IN TACT DRAINING DARK TIM URINE. GENERALIZED WEAKNESS NOTED. ASSISTED PT TO REPOSITION. WOUND TO SACRUM COVERED BY OPTIFOAM CDI. PT REFUSED ASSESSMENT OF SACRUM AT THIS TIME. DRESSING TO RLE CDI. PT REFUSED SKIN ASSESSMENT OF WOUND. PT REPORTS SENSATION WNL TO BUE/BLE. ABLE TO MOVE TOES AND FINGERS. MIDLINE TO RUE IN TACT WITH IV FLUIDS FLOWING, SITE WNL. DRESSING CDI. PORTS PATENT AND FLUSH WELL. ERYTHEMA NOTED TO ABD. FOLDS. INTERDRY IN PLACE. CONTACT PLUS PREC IN PLACE. AT BEDSIDE. PT REFUSES SCDS AT THIS TIME. FALL PREC IN PLACE. SITTER AT BEDSIDE. BED IN LOW POSITION. CALL LIGHT WITHIN REACH. WILL CONTINUE TO MONITOR.
[2019-02-21 17:43] VITALS: BP 114/66
--- NOTE | 2019-02-21 18:41 | NUR ---
PT LAYING IN BED. AA/OX4. DECLINED TO PO AND IV MEDICATIONS AT THIS TIME. PHYSICIAN AWARE OF PT NONCOMPLIANCE. PT AGITATED. STATES, "I DON'T NEED THOSE, YOU GUYS ARE PILL PUSHERS." NO S/S OF ACUTE DISTRESS. NO SOB ON ROOM AIR. MIDLINE IN TACT TO RUE, DRESSING CDI. CHAN IN TACT DRAINING TIM URINE TO GRAVITY. NO DEPENDENT LOOPS. HOB ELEVATED. SUCTION AT BEDSIDE. PREVALON BOOTS IN PLACE BLE. BED IN LOW POSITION. CONTACT PREC IN PLACE. SITTER AT BEDSIDE. BED IN LOW POSITION. CALL LIGHT WITHIN REACH. WILL ENDORSE TO ONCOMING SHIFT.
--- NOTE | 2019-02-21 19:25 | NUR ---
RECEIVED PT AOX3 ABLE TO RESPOND TO COMMANDS AND MAKE NEEDS KNOWN, MUMBLES WORDS, APPEARS DROWSY, NONCOMPLIANT. EASILY AROUSABLE. PUPILS PERRLA.TRACHEA MIDLINE, NO DRAINAGE TO EENT. NO EENT COMPLAINTS. LUNG SOUNDS CLEAR TO BUL, DIMINISHED BASES. CHEST RISE/FALL SYMMETRIC E/U BREATHING, DENIES SOB. NO ACUTE RESP DISTRESS, ON ROOM AIR.AFIB WITH BBB AND OCCASIONAL PVC'S. DENIES CHEST PAIN. ON TELE MONITOR. CAP REFILL <3 SEC, PULSES MODERATE TO BUE, WEAK TO BLE. NO EDEMA. MIDLINE TO RIGHT UPPER EXTREMITY, PATENT X2, D5 1/2 NS INFUSING @ 75 CC/HR. GEN WEAKNESS. PT REFUSING TURN Q2H. JOINTS INTACT. NO CONTRACTURES OR DEFORMITIES.PUREE DIET, NO S/S OF N/V.OBESE. ABD SOFT/ROUND. ACTIVE BOWEL SOUNDS X4 QUADRANTS, NO BM AT THIS TIME.F/C DRAINING TO GRAVITY TIM URINE, INTACT/SECURED. NO SCROTAL EDEMA OR DISCHARGE NOTED.ERYTHEMA TO ABD FOLDS WITH INTERDRY DRESSING IN PLACE. ULCER TO RIGHT HEEL DRESSING CDI. STAGE 3 PRESSURE ULCER, OPTIFOAM TO SACRUM CDI. HEELBOOTS BLE. PT UNCOOPERATIVE WITH NURSING STAFF AT TIMES AND NONCOMPLIANT. REFUSES MEDICATIONS AND CARE. AT BEDSIDE UPDATED ON POC. BED AT LOWEST SETTING, CALL LIGHT WITHIN REACH, HOB ELEVATED 45 DEGREES. WILL CONT TO MONITOR.
[2019-02-21 20:35] VITALS: BP 124/68
--- NOTE | 2019-02-22 02:02 | NUR ---
PT AWAKE/ALERT AT THIS TIME WATCHING TELEVISION. NO ACUTE DISTRESS, DENIES SOB. FOUND TELEMONITOR REMOVED, EDUCATED ON TELE MONITOR AND PLACED BACK ON. FOUND GOWN REMOVED, PLACED GOWN BACK ON.
[2019-02-22 05:00] VITALS: BP 137/80
--- NOTE | 2019-02-22 05:02 | NUR ---
PT SLEEPING BUT EASILY AROUSABLE, NO ACUTE DISTRESS, DENIES SOB. PT REFUSING BLOOD DRAW AT THIS TIME, RESIDENT MADE AWARE. CHEST RISE/FALL SYMMETRIC, E/U BREATHING, NO ACUTE RESP DISTRESS.
--- NOTE | 2019-02-22 07:15 | NUR ---
GAVE REPORT TO INEZ MARTINEZ. UPDATES PROVIDED, JUDE ANSWERED.
[2019-02-22 09:23] VITALS: BP 101/66
--- NOTE | 2019-02-22 09:49 | NUR ---
RECIEVED PATIENT WHO IS AGITATED AT TIMES AND IS ALREADY DEFENSIVE ABOUT HIS CARE. SHAY CRA BEEN OIN ISOLATION FO RMRSA OF THE WOUND AND NARES. C DIF AND ESBL AND MDRO. PATIENT AHS A DRESSIN TOT HE RIGHT FOOT INTAT AND DRY WITH GREG AND ELVEATED ON PILLOW IDNIATED. APTIEN TAHS A RASH TO THE FOLDS OT THE ABDOMEN ANDIS FUNGAL IN APPEARANCE. SHAY TORREHW A MIDLINE CATH AND PATENT AT THIS TIME. VITAS ARE AT 97.9M, 85, 18, 101/66, 97% ON ROOM AIR. APICONSTANCE CAR BEEN RECIEVING HHN AND SHAY CAR SOME FINE RALES TO HET LUNGSA N DA DYR UNJPRODUCTIF WECOUGH NOTED. SHAY CAR HEAD OF BED UP AND IS WITH NOTED ATERY STOOLS DUE TO C DIFF. APTIENT AHS A SACRAL DRESSING DUE TO WOUND OF THE SACRAL AERA AND HAS NUMBEROUS SCARRING WOT T ALEGS AND ABDOME. CRISPIN CAR BEEN ON VACO PO AND IV FLAGYL ORDERED. HE HAS MERREN AT NIGHT AND NO ADVERSE RECTION NOTED. PATIENT HAD NOTED PREVIOUS LABS OF THE POTASSIUM, MAGNESIUM AND BUN AND CREATININE, BUT REFUSED BLOOD DRW THIS AM. HE HAS ALSO REFUSED RADIOLOGY THIS AM. WILL CONTINUE TO MONITOR INDICATED.
--- NOTE | 2019-02-22 12:31 | NUR ---
BLOOD SUGAR AT 1130 AT 135 AND NO COVERAGEINDIATED. AT BEDSIDE. PATENT HAS IDLINE BUT PATIENT PER XRAY SHOWS CURLING UP AND PATIENT HAD RFUSED THIS AM XRAY.
[2019-02-22 12:39] VITALS: BP 101/60
--- NOTE | 2019-02-22 13:39 | NUR ---
PATIEBT DENIES ANY PAIN AND NO SIGNS OF INFILTRATE TO THE MIDLINE CATH. IV STOPPED INDICATED DUE TO PATIENT XRAY SHOWS THE LINE IS FOLDED BACK ON ITSELF. PATIETN HAS NO PAIN TO THE ARM AND HAS TOLEATED MEDICATION SO FAR ORALLY. BLOOD SUGAR AT NOON AT 135 AND AT BESIDE AND SUPPORTIVE WITH CARE. AWAITIGN UPDATE ON ORDERS
--- NOTE | 2019-02-22 17:10 | NUR ---
SPOKE WITH THE PIC LINE NURSE AND HE IS TO ARRIVE AROUND 7PM FOR POSITIONING OF THE MID LINE CATH. PATIENT HAD NO ADVERSE REACTION TO THE FLUID GIVEN AND DR IS AWARE OF THE XRAY RESULTS. LEFT BUT WILL RETURN IN A FEW HOURS. PATEINT IS RESTING QUIETLY AND NO ACUTE DISTRESS NOTED.
--- NOTE | 2019-02-22 17:57 | NUR ---
BLOOD SUGAR AT 122 AND GAV ETHE MEDICATION PER THE PATIENT IN HIS ICE WATER. PATIENT HS BEEN RESTING MOST OF THE DAY. OFFERED TO CHANGE HIS FOOT DRESSING BYUT AGAIN REFUSED AND WANTS HIS TO DO.
[2019-02-22 17:59] VITALS: BP 128/72
--- NOTE | 2019-02-22 19:30 | NUR ---
RECIEVED PT FROM DAY NURSE MICHELLE, ASSESSMENT PERFORMED AT THIS TIME, PT DENIES PAIN OR SOB AT THIS TIME, PT IS A/OX4, DENIES JERNIGAN OR DIZZINESS, PT SPEAKS CLEARLY AND ABLE TO MAKE NEEDS KNOWN, PT IS IRRITATED AND RESSISTANT TO CARE AT THIS TIME, SAFETY PRECAUTIONS IN PLACE, WILL CONTINUE TO MONITOR
--- NOTE | 2019-02-22 20:15 | NUR ---
PT REFUSING PICC NURSE TO ADJUST PICC LINE
--- NOTE | 2019-02-22 20:25 | NUR ---
TALKED TO PATIENT AND PATIENT AGREED TO ALLOW PICC NURSE TO ADJUST PICC LINE, PICC NURSE ADJUSTED PICC LINE AND XRAY CALLED TO CHECK FOR PLACEMENT.
[2019-02-22 21:01] VITALS: BP 110/63
--- NOTE | 2019-02-22 21:10 | NUR ---
CONTACTED DR BARRERA ABOUT VERIFYING PICC TO AUTHORIZE FOR USE, SAID IT WAS OK TO HOLD PRILOSEC SINCE NO OTHER LINE IS PLACED AND PT REFUSING IV INSERTION. DR BARRERA SAID SHE WITH CHECK TO SEE IF ITS OK TO USE PICC
--- NOTE | 2019-02-22 22:27 | NUR ---
DR BARRERA OKAYED USE OF PICC EVEN THOUGH XRAY IMPRESSION RECOMENDED TO ADVANCE PICC 25CM
--- NOTE | 2019-02-23 00:10 | NUR ---
PT RESTING IN BED WITH AT BEDSIDE, PT DENIES PAIN AT THIS TIME, PT DENIES SOB AT THIS TIME, PT IS STILL REFUSING FOR ME CHANGE OPTIFOAM ON COCCYX OR DRSSING ON RIGHT FOOT. ALL NEEDS ATTENDED TO SAFETY PRECAUTIONS IN PLACE, WILL CONTINUE TO MONITOR
--- NOTE | 2019-02-23 02:50 | NUR ---
PT RESTING IN BED WITH EYES CLOSED, AT BEDSIDE, PT EASILY AROUSABLE TO VERBAL STIMULI, PT DENEIS PAIN AT THIS TIME, ALL NEEDS ATTENDED TO SAFETY PRECAUTIONS IN PLACE, WILL CONTINUE TO MONITOR
--- NOTE | 2019-02-23 04:00 | NUR ---
PT NOW PERMITED ME TO CHANGE SACRAL COCCYGEAL DRESSING, REMOVED SOILED DRESSING, CLEANSED AND APPLIED THERAHONEY GEL TO WOUND AND REPLACED WITH NEW DRESSING, PT REFUSED THE CHANGING OF RIGHT HEEL DRESSING, THE PATIENT ALSO REFUSED THE APPLICATION OF BILATERAL HEEL PROTECTORS, EACH FOOT IS OFFLOADED WITH PILLOW, AND PATIENTS WIEGHT IS REDISTRIBUTED WITH PILLOWS, CLEANSED EXCORIATION OF ABD AND GROIN FOLDS PATTED DRY AND APPLIED INTERDRY T ABD AND GROIN FOLDS, APPLIED ZGUARD TO AFFECTED AREAS
--- NOTE | 2019-02-23 05:11 | NUR ---
PT RESISTED TREATMENT THROUGH MOST OF SHIFT AND REFUSED MOST OF CARE, PT EDUCATED TO THE IMPORTANCE OF CARE PLAN BUT STILL REFUSED ALL MEDICATIONS ASIDE FROM ABX, PT REFUSED WOUND CARE UNTIL THIS AM AND ALLOWED FOR SOME WOUND CARE TO BE PERFORMED (SEE NOTES) PT DENIED PAIN THROUGH MOST OF NIGHT AND REMAINED AT BEDSIDE THROUGH NIGHT, SAFETY PRECAUTIONS MAINTAINED DURING NIGHT WILL CONTINUE TO MONITOR AND ENDORSE CARE
--- NOTE | 2019-02-23 05:55 | NUR ---
DR CHUA SAW PT, ORDERED TO REMOVE CHAN, REMOVED CHAN, PT BLOOD PRESSURE 166/73 DR MONTANO NOTIFIED, NO NEW ORDERS AT THIS TIME
[2019-02-23 06:01] VITALS: BP 166/73
[2019-02-23 07:00] LABS: BASOPHIL % 0.2 % (0-2)
[2019-02-23 07:10] LABS: PLATELET COUNT 111 x10^3mcL (130-400); RED CELL DISTRIBUTION WIDTH 23.1 % (11.5-14.5)
[2019-02-23 07:35] LABS: CALCIUM 7.7 mg/dL (8.5-10.1); CARBON DIOXIDE 17.9 mmol/L (21-32); CREATININE SERUM 2.8 mg/dL (0.7-1.3)
--- NOTE | 2019-02-23 08:00 | NUR ---
RECEIVED PATIENT ALERT AND ORIENTED TIMES FOUR. IV INTACT AND NO SIGNS OF REDNESS OR SWELLING TO HE SITE. PATIENT HAS DIMINISHED BREATH SOUNDS AND WITH DRY HACKY COUGH. AT BEDSIDE AND ATTENTIVE WITH CARE. PATIENTS SPENT THE NIGHT. PATIENT IS GROSSLY OBESE WITH SKIN FOLDS AND SOME REDNESS AND SOME FUNGAL APPEARANCE TO THE GROIN. PATIENT DENIES PAIN AT THIS TIME. HE HAS BEEN GRUMPY AND HAS BEEN ASKING FOR VARIOUS DIETARY REQUESTS AND STAFF NOTED HE EATS VERY LITTLE. PATIENT HAS BEEN USING THE URINAL OR INCONTINENT OF AND BOWEL. THE DIARRHEA HAS SLOWED AND NO BM SO FAR THIS AM. PATIENT HAS OPTIFOAM TO HTE COCCYX AND THE DRESSING TO HE RIGHT HEEL IN PLACE AND INTACT. PATIENT HAS BEEN REFUSING THE SCDS AND THE BOOT ORDERED. PATIENT HAD VITALS AT THIS TIME AT 96.4, 79, 20, 160/73, 100%. PATIENT AHS BEEN ON FLAGYL, MERREN, AND ORAL VANCO. PATIENT HAS HX OF GERD, HTN, NEUROPATHY AND DIABETES. HE HAS ALSO C DIFF AND MRSA, ESBL AND MDRO. NOTED LABS ARE THE PLT CT AT 111, H AND OF 9.8/30, AND PATIENT HAS BEEN [facility] MID LINE PICC AND SO FAR PATENT. PATIENT IS WITH ALLERGY TO PCN AND HAS BEEN ASSISTED WITH ALL ADLS DUE TO HIS GENERAL WEAKNESS AND IMMOBILTY. WILL CONTINUE TO MONITOR.
[2019-02-23 08:09] LABS: POTASSIUM SERUM 2.7 mmol/L (3.5-5.1)
[2019-02-23 08:43] LABS: rbc morphology (normal/abnorm) ABNORMAL (NORMAL)
--- NOTE | 2019-02-23 09:33 | NUR ---
PATEINT HAS POTASSIUM LEVEL OF 2.7 AND WAS TO CALL THE RESIDENT BUT ALREADY RECEIVED ORDER FOR PO K AND K RIDER. ADVISED THE PATIENT OF INDICATION AND WILL GIVE WHEN RECEIVED.
[2019-02-23 09:44] VITALS: BP 116/65
--- NOTE | 2019-02-23 10:30 | NUR ---
LEFT FOR HOME AND WILL RETURN. PATIENT IS SLEEPING AT THIS TIME. OFFERE THE POTASSIUM IN JUICE PER PATIENT REQUEST ND HUNG THE K RIDER ORERED. WILL MONITOR.
--- NOTE | 2019-02-23 11:49 | NUR ---
Follow-up Nutrition Assessment: 217T/B JEFFREY ROBERTPieter WILLIAMSON HR Dx: Sepsis, PNA, Acute renal failure PMHx; HTN, DM, GERD, CKD Stage IIIa Labs: (02/23) NA 146H, K 2.7L, BUN 73H, CREAT 2.8H Meds: D50%, flagyl, humulin, Pepcid, phoslo, vancomycin, zofran Diet: Puree w/ honey thick liquid PO Intake: (02/23) breakfast 50% Weights: (02/20) 273 kg, (02/21) 129.2 kg, (02/23) 129 kg Skin: multiple ulcer like wounds, one to sacral/coccygeal, one to R heel Clyde: 14 I/Os: (02/23) 1885/1100 (785) Edema: +1 BLE GI: Last BM: 02/22 RDN Visit (02/23): Patient was sleeping. Per RN Marie, pt does not have any N/V. Pt has C. diff but it seems to be improving. Pt has poor PO. Estimated Nutritional Needs Based on adjusted body weight 132 kg Energy: 4736-6284 kcal/d (25-30 kcal/kg) Protein: 79-105 g/d (0.6-0.8 g/kg) - CKD stage 3 Fluid: per doctor Nutrition Diagnosis 1. Inadequate oral intake related to possible poor appetite as evidenced by pt. refusing to eat, NPO status. 2. Morbid obesity related to increased energy intake as evidenced by BMI 36.6 kg/m2. Intervention 1. Recommend continuing puree diet with honey thick liquid. 2. Recommend Ensure pudding BID. Discussed recommendations with Dr. Osmel Giles Monitor/Evaluate Goal: Have pt meet at least 75% of estimated needs Monitor: PO intake, Labs, GI function F/U in 2-3 days as high risk 02/25-
--- NOTE | 2019-02-23 11:49 | NUR ---
1. Recommend continuing puree diet with honey thick liquid. 2. Recommend Ensure pudding BID. Discussed recommendations with Dr. Bolivar Sayed
[2019-02-23 12:52] VITALS: BP 118/64
--- NOTE | 2019-02-23 12:57 | NUR ---
POOR INTAKE AND HE WANTS MILK AND OFFERED AND HAS TOLERATED WELL.
[2019-02-23 13:08] VITALS: BP 162/53
--- NOTE | 2019-02-23 14:23 | NUR ---
PATIENT HAS NOT URINATED YET. ENCOURAGED FLUIDS. CONTINUED ON K RIDER ORDERED. NO REDNESS OR BURING TO THE IV MIDLINE SITE.
--- NOTE | 2019-02-23 16:04 | NUR ---
PATIENT IS RESTLESS AT TIMES AND HAS BEEN JUST LYING AND WATCHING TV AND NOT TAKING MUCH MORE THAN FLUIDS ON THE TRAY.
[2019-02-23 17:47] VITALS: BP 138/69
--- NOTE | 2019-02-23 17:58 | NUR ---
PATIENT HAS MEDICATIONS AT BEDSIDE ADN SO FAR HE HAS NT TAKEN. ENCOUGRAGE INTAKE OF DIET AND FLUIDS.
--- NOTE | 2019-02-23 19:35 | NUR ---
RECEIVED REPORT FROM DAY SHIFT RN. PT RESTING IN BED. AA&O X4. NO SOB NOTED. BREATHING EVEN AND UNLABORED. NO C/O PAIN AT THIS TIME. NO DISTRESS NOTED. MIDLINE TO RT UPPER ARM, INTACT. INTERDRY TO ABD FOLDS AND DRESSING TO RIGHT FOOT, CDI. SAFETY MEASURES IN PLACE. BED IN LOWEST POSITION. SIDE RAILS UP X2. INSTRUCTED PT TO USE THE CALL LIGHT FOR ASSISTANCE. CALL LIGHT WITHIN REACH.
[2019-02-23 20:50] VITALS: BP 144/77
--- NOTE | 2019-02-23 22:06 | NUR ---
PT REFUSED BACTROBAN OINTMENT FOR MRSA NARES. INFORMED PT ABOUT MRSA AND MED PURPOSE.
[2019-02-24 06:16] VITALS: BP 145/77
--- NOTE | 2019-02-24 06:21 | NUR ---
PT RESTED IN INTERVALS DURING SHIFT. NO SOB NOTED. BREATHING EVEN AND UNLABORED. CLEANED PT AND MADE COMFORTABLE. RIGHT FOOT DRESSING CHANGED: XEROFORM, 4X4 , GAGAN AND GREG WRAPPED. ELEVATED ON PILLOW. REFUSED SCD. PT REFUSED LAB DRAW, FLAGYL AND VANCOMYCIN THIS MORNING. EXPLAINED TO THE PT THE IMPORTANCE AND PURPOSE OF LAB DRAW, MEDICATION AND TREATMENT. PT GOT MORE ANGRY AND STATES "NO! HE DOES NOT NEED IT". DR BUSTAMANTE MADE AWARE. BED IN LOWEST POSITION. SIDE RAILS UP X2. CALL LIGHT WITHIN REACH. WILL ENDORSE CONTINUITY OF CARE TO DAY SHIFT RN.
--- NOTE | 2019-02-24 07:25 | NUR ---
PT IS AAOX4. DENIES H/A AND DIZZINESS. RESP EVEN, SHALLOW, AND UNLABORED. LUNG SOUNDS DIMINSHED BILATERALLY. ON R/A. NO COUGH OR SOB NOTED. TELE [address] READING AFIB WITH BBB AND DEPRESSED T WAVE. PT DENIES C/P AND PRESSURE. ABDOMEN SOFT, ROUND, NONTENDER, NONDISTENDED. BOWEL SOUNDS ACTIVE X4 QUADS. PT DENIES N/V/D. BLE PEDAL PULSES WEAK, BLE RADIAL PULSES MODERATE. NO EDEMA NOTED AT THIS TIME. PT DENIES NUMBNESS AND TINGLING. PT AHD SACRAL COCCYX WOUND WITH EXCORITATION. DRESSING HAS BEEN REMOVED AT THIS TIME DUE TO BEING WET WITH URINE. PT HAS REDNESS TO ABDOMINAL FOLDS AND PERINEAL AREA, INTRA-DRY HAS BEEN PLACED. PT HAS R HEEL ULCER COVERED WITH XEROFORM, 4X4 GAUZE, KERLIX AND GREG BANDAGE. CDI. DRESSING WAS CHANGED TODAY BY NOC SHIFT NURSE INEZ DAI. IVF RUNNING TO RUE MIDLINE WITH PORTS. BOTH PORTS FLUSHED AND PATENT. PT DENIES PAIN AND DISCOMFORT AT THIS TIME. CONTACT PRECAUTIONS MAINTAINED. FALL PROTOCOL FOLLOWED. BED IN LOWEST POSTION. CALL LIGHT WITHIN REACH.
--- NOTE | 2019-02-24 09:17 | NUR ---
DUE MEDS OFFERED. PT TOOK PHOS LO, BUT REFUSED PRO-AMATINE, BACTOBAN AND PEPCID STATING HE DOES NOT HAVE MRSA IN THE NARES, HTN AND DOES NOT NEED ANYTHING FOR HIS STOMACH. RISK AND BENEFITS EXPLAINED. PT REFUSED TO RESPONED. THE PT WAS EDUCATED THAT HE NEEDS HIS LABS DRAWN IN ORDER FOR THE MD TO DIRECT HIS CARE. THE PT REFUSED A LAB DRAW. RISK AND BENEFITS EXPLAINED TO PT REFUSED TO RESPOND. THE PT DRESSING WAS REMOVED WHEN HIS CHUX WAS CHANGED DUE TO THE DRESSING BEING WET WITH URINE. THIS NURSED ATTEMPTED TO APPLY NEW DRESSING AT THIS TIME PUT PT REFUSED TO ALLOW IT, STATING, "YOU ARE NOT GOING TO TOUCH ME, YOU ARE JUST A NAZI." RISK AND BENEFITS EXPLAINED. PT STATED HE WILL NOT ALLOW A DRESSING CHANGE. DR. CHUA MADE AWARE. BED IN LOWEST POSITION. CONTACT PRECAUTIONS MAINTAINED. FALL PROTOCOL IN PLACE.
--- NOTE | 2019-02-24 09:30 | NUR ---
PT STATED TO THIS NURSE THAT HE DOES NOT HAVE HTN AND HE DOES NOT HAVE MRSA. PT STATED, "YOU'RE A RULE FOLLOWER, YOU'RE A NAZI." " I NEED SOMEONE WHO ISN'T A RULE FOLLOWER!"
[2019-02-24 09:45] VITALS: BP 130/78
--- NOTE | 2019-02-24 10:42 | NUR ---
PT HAS REFUSED P/T TRAINING AT THIS TIME.
--- NOTE | 2019-02-24 10:55 | NUR ---
REPORTED TO DR. CHUA THAT PT IS REFUSING ALMOST ALL CARE. PT REFUSED HTN, PROTONIX, BACTOBAN. PT REFUSED DRESSING FOR SACRAL COCCYX WOUND. PT REFUSED TO BE TURNED AND REPOSITIONED. PT REFUSED LAB DRAWS AND WILL NOT WEAR HEEL PROTECTORS. NO NEW ORDERS AT THIS TIME.
--- NOTE | 2019-02-24 12:51 | NUR ---
BLOOD SUGAR 114, NO INSULIN INDICATED. PT REFUSED PRO-AMATINE, DR. CHUA MADE AWARE. PT RECEIVED DUE MEDS VANCO PO, FLAGYL IVPB AND PHOSLO. PT INFORMED HIS REQUEST FOR NEW NURSE HAS BEEN GIVEN AND INEZ OCONNOR WILL TAKE OVER PT'S CARE. PT DENIES PAIN AT THIS TIME. CALL LIGHT WITHIN REACH. BED IN LOWEST POSITION. CONTACT PRECAUTIONS MAINTAINED. FALL PROTOCOL IN PLACE.
--- NOTE | 2019-02-24 13:08 | NUR ---
TOOK OVER CARE OF PT FROM FAUZIA.
[2019-02-24 14:00] VITALS: BP 115/70
--- NOTE | 2019-02-24 15:45 | NUR ---
PHYSICAL THERAPY NOTE ATTEMPTED TO ASSESS PATIENT. PRESENT AND REQUEST TO HOLD TILL NEXT VISIT SECONDARY TO SCHDULED MEDICAL PROCEDURE. NURSING AWARE.
--- NOTE | 2019-02-24 17:43 | NUR ---
RECTALTUBE/FLEXISEAL INSERTED. DRAINING WATERY STOOL. UNABLE TO INSERT CHAN WITH ATTEMPTS BY 2 RNS. UNABLE TO LOCATE MEATUS PT HAS INVERTED PENIS.
[2019-02-24 18:02] VITALS: BP 130/79
--- NOTE | 2019-02-24 19:35 | NUR ---
RECEIVED PT FROM DAY SHIFT RN. PT AAOX4. DENIES JERNIGAN/DIZZINESS. BREATHING EVEN AND UNLABORED, NO SOB NOTED. TELE #30 AFIB HR 79. PT DENIES CHEST PAIN/PRESSURE. PT HAS RECTAL TUBE IN PLACE. RIGHT UPPER ARM MIDLINE. RIGHT HEEL WOUND COVERED WITH DRESSING. PERINEAL/BUTTOCKS ERYTHEMA. COCCYX WOUND COVERED WITH OPTIFOAM. PT DENIES ANY DISTRESS. CALL BUTTON WITHIN REACH. SAFETY PRECAUTIONS IN PLACE. AT BEDSIDE. WILL CONTINUE TO MONITOR.
--- NOTE | 2019-02-24 20:00 | NUR ---
RESTING QUIETLY. INCONTINENT OF STOOL AND URINE. UNSUCCESSFUL IN INSERTING CHAN. FLEXISEAL IN PLACE. AT BEDSIDE AND VERY HELPFUL WITH CARE OF PT. PT GETS IRRITATED VERY EASILY. CONTINUES ON MERREPENEM AND FLAGUL IV ABX. CONTACT ISOLATION. REFUSED LABS THIS AM AND ACCUCKS LUNCH AND DINNER. NO PAIN MEDS ADMIN. RT HEEL WOUND WRAPPED CDI. CALL LIGHT WITHIN REACH.
--- NOTE | 2019-02-24 20:30 | NUR ---
PT CHANGED AND REPOSITIONED AT THIS TIME. ELEVATED RIGHT HEEL OFF THE BED. NO SIGNS OF DISTRESS. CALL BUTTON WITHIN REACH. SAFETY PRECAUTIONS IN PLACE. CONTACT ISOLATION. WILL CONTINUE TO MONITOR.
--- NOTE | 2019-02-24 22:00 | NUR ---
PT REFUSED TO BE TURNED AND REPOSITIONED EVERY TWO HOURS/ NEEDED. PROVIDED EDUCATION ON SKIN BREAKDOWN RISKS, VERBALIZED UNDERSTANDING AND CONTINUES TO REFUSE. UNCOOPERATIVE WITH NURSING CARE AT TIMES. PT REFUSED SCHEDULED MEDICATION. PT IS NONCOMPLIANT WITH CARE. RESIDENT PAGED.
[2019-02-24 22:25] VITALS: BP 116/77
--- NOTE | 2019-02-25 00:37 | NUR ---
PT AWAKE. DENIES PAIN. NO SIGNS OF DISTRESS NOTED. CALL BUTTON WITHIN REACH. SAFETY PRECAUTIONS IN PLACE. WILL CONTINUE TO MONITOR.
--- NOTE | 2019-02-25 03:15 | NUR ---
PT REQUESTING TO D/C RECTAL TUBE, PER PT STATES IT IS BOTHERING HIM. EDUCATED PT ON THE BENEFITS OF KEEPING THE RECTAL TUBE AND SKIN BREAKDOWN. PT VERBALIZED UNDERSTANDING. PT CONTINUED TO REQUEST TO TAKE RECTAL TUBE OUT. DR BARRERA MADE AWARE. RECEIVED NEW ORDER TO D/C RECTAL TUBE AT THIS TIME DUE TO PT DISCOMFORT. RECTAL TUBE D/C WITH TIP INTACT. PT CLEANED AND REPOSITIONED. CALL BUTTON WITHIN REACH. SAFETY PRECAUTIONS IN PLACE. WILL MONITOR.
--- NOTE | 2019-02-25 05:13 | NUR ---
PT SLEPT ON AND OFF THROUGHOUT THE NIGHT. BREATHING EVEN AND UNLABORED ON RA, NO SOB NOTED. MEDICATED PER EMAR. PT DENIES ANY PAIN. PT UNCOOPERATIVE WITH CARE AND NON COMPLIANT. AT BEDSIDE. CALL BUTTON WITHIN REACH. SAFETY PRECAUTIONS IN PLACE. WILL CONTINUE TO MONITOR AND ENDORSE CARE TO DAY SHIFT RN.
[2019-02-25 05:43] VITALS: BP 149/95
[2019-02-25 07:01] LABS: BASOPHIL % 0.5 % (0-2)
[2019-02-25 07:03] LABS: CALCIUM 7.9 mg/dL (8.5-10.1); CARBON DIOXIDE 21.2 mmol/L (21-32); CREATININE SERUM 2.1 mg/dL (0.7-1.3)
[2019-02-25 07:21] LABS: POTASSIUM SERUM 2.8 mmol/L (3.5-5.1)
[2019-02-25 07:29] LABS: PLATELET COUNT 111 x10^3mcL (130-400); RED CELL DISTRIBUTION WIDTH 23.4 % (11.5-14.5)
--- NOTE | 2019-02-25 07:43 | NUR ---
PT RESTING. NO SIGNS OF DISTRESS NOTED. ENDORSED CARE TO DAY SHIFT RN, ALL QUESTIONS ADDRESSED.
[2019-02-25 08:04] VITALS: BP 151/91
--- NOTE | 2019-02-25 08:07 | NUR ---
RECEIVED PATIENT FROM INEZ LEMON. PATIENT SLEEPING IN BED AT THIS TIME. AT BEDSIDE. DR PEREZ SAYED IN TO SPEAK WITH . ALSO SPOKE WITH ABOUT PLAN FOR TODAY AND WHAT MEDICATIONS NEED TO BE TAKEN. AGREES, HOWEVER REPORT FROM LAST NIGHT PATIENT REFUSED PO MED AND CERTAIN TREATMENTS. CALL LIGHT IN REACH AT THIS TIME, PT PARMINDER WILL BE IN TO WORK WITH PATIENT.
--- NOTE | 2019-02-25 12:00 | NUR ---
PATIENT IN BED. AT BEDSIDE. NO COMPLAINTS AT THIS TIME. PATIENT CONTINUE TO REFUSE ACCUCHECK, DR PEREZ SAYED AWARE. PATIENT SHEETS CHANGED, OPTIFORM DRESSING ON BUTTOCKS REPLACED, Z GUARD APPLIED TO BUTTOCKS, AND INTERDRY DRESSING APPLIED TO ABDOMINAL FOLDS. CALL LIGHT IN REACH, PATIENT AGITATED WITH STAFF, STATES THIS NURSE "IS ANNOYING HIM". STATES SHE WILL BE LEAVING FOR WORK AND WILL RETURN AROUND 2200. WILL ENDORSE TO ONCOMING NURSE PER .
[2019-02-25 12:40] VITALS: BP 150/93
--- NOTE | 2019-02-25 13:50 | NUR ---
1. Recommend continue with pureed HTL diet with Ensure pudding BID. 2. Recommend adding Theragran, Vitamin C 500mg and Zinc sulfate 220mg for wound healing.
--- NOTE | 2019-02-25 13:50 | NUR ---
Follow-up Nutrition Assessment: Shalom Rosenberg Gene 217T-B Dx: Sepsis, PNA, Acute renal failure Labs:(02/25) K:2.8L, BH, BUN:56H, Cr:2.1H, H/H:9.9/30L, Meds: Flagyl, Humulin, KCL, Merr[place], Pepcid, Phoslo, Tylenol, Zofran Current Diet: CCHO PO intake: (02/21) NPO (02/22) B:0% (02/23) B:50% L:0% pt refused to have lunch , per nurse note Weights: (02/23) 129kg (02/25) 130kg Skin: right heel wound covered with dressing. Perineal/buttocks erythmea, coccyx wound. Edema: none noted Last BM: 02/24+rectal tube Per progress note 02/25, Hypokalemia:2.8, kidney function improved 1.2, still on oral vancomycin for c. Diff and did not tolerate rectal tube. During visit, pt was with RN. Pt continues with poor PO intake and has a rectal tube. Spoke to Dr. Li about Theragran, Vitamin C and Zinc for wound healing. Doctor agreeable and said he would put orders in. Estimated Nutritional Needs based on adjusted body weight:100kg Energy: 3000-3500kcal/day (30-35kcal/kg for wound healing) Protein: 100-150g/day (1.0-1.5 /kg for wound healing/CKD stage 2) Fluid: per MD Nutrition Diagnosis 1. Increased nutrient needs related to altered skin integrity as evidenced by pt wtih sacraclcoccyx pressure ulcer stage 3 per wound RN. 2. Inadequate oral intake related to possible poor appetite as evidneced by pt refusing to eat, NPO status (pt no longer NPO, but continues withh poor PO intake) 3. Morbid obesity related to increased energy intake as evidenced by BMI:36.6kg/m2 (ongoing) Intervention 1. Recommend continue with pureed HTL diet with Ensure pudding BID. 2. Recommend adding Theragran, Vitamin C 500mg and Zinc sulfate 220mg for wound healing. Monitor/Evaluate Previous goal: PO intake at least 75% of estimated needs Goal: PO intake at least 75% of estimated needs, wound healing Monitor: PO intake, Labs, GI function and skin integrity F/U in 2-3 days as high risk:
--- NOTE | 2019-02-25 15:56 | NUR ---
PATIENT IN SLEEPING. NO SIGNS OF PAIN OR DISTRESS. WILL CONTINUE TO MONITOR. CALL LIGHT IN REACH, BED IN LOWEST POSITION.
[2019-02-25 16:53] VITALS: BP 141/84
--- NOTE | 2019-02-25 18:48 | NUR ---
PATIENT SEATED IN BED AT THIS TIME. NO COMPLAINTS OF PAIN, IV ANTIBIOTICS AND KRIDER INFUSING WELL. PATIENT DENIES IRRITATION FROM KCL. R HEEL DRESSING CHANGED TODAY, OPTIFORM SACRAL CHANGED TODAY, INTERDRY DRESSING APPLIED TO ABDOMINAL FOLDS. WILL ENDORSE TO ONCOMING NURSE. CALL LIGHT IN REACH.
--- NOTE | 2019-02-25 19:15 | NUR ---
DR STANLEY AT BEDSIDE AND MADE AWARE PT RECEIVED KCL 40MEQ IV TODAY. PER DR STANLEY WILL ORDER ANOTHER KRIDER AT THIS TIME DUE TO LOW POTASSIUM FOR SEVERAL DAYS.
--- NOTE | 2019-02-25 19:30 | NUR ---
RECEIVED PT FROM DAY SHIFT RN. PT AAOX4. DENIES JERNIGAN/DIZZINESS. BREATHING EVEN AND UNLABORED, NO SOB NOTED. TELE #30 AFIB HR 75. PT DENIES CHEST PAIN/PRESSURE. RIGHT UPPER ARM MIDLINE. RIGHT HEEL WOUND COVERED WITH DRESSING. PERINEAL/BUTTOCKS ERYTHEMA. COCCYX WOUND COVERED WITH OPTIFOAM. PT DENIES ANY DISTRESS. CALL BUTTON WITHIN REACH. SAFETY PRECAUTIONS IN PLACE. WILL CONTINUE TO MONITOR.
--- NOTE | 2019-02-25 21:00 | NUR ---
PT STATED HE DOES NOT WANT TO HAVE MIDLINE ANYMORE AND WILL TAKE IT OFF HIMSELF. EDUCATED PT ON THE NEED OF MIDLINE FOR TREATMENT. DR CLINE PAGED AND MADE AWARE.
[2019-02-25 21:11] VITALS: BP 133/83
--- NOTE | 2019-02-25 23:00 | NUR ---
ROUNDS MADE. NOTED PT MIDLINE LEAKING WITH SHEET WET FROM MIDLINE. PT DENIES PAIN AND DOES NOT KNOW WHAT HAPPENED. INFUSION STOPPED. DRESSING REMOVED TO ASSESS SITE. MIDLINE TUBBING NOTED TO BE LONGER THAN USUAL AND LEAKING FROM INSERTION SITE. DR CLINE PAGED TO COME ASSESS PT. DR LOZANO AT BEDSIDE TO ASSESS PT. NEW ORDER RECEIVED FOR PICC LINE INSERTION. PICC LINE NURSE CALLED AND AWAITING CALL BACK.
--- NOTE | 2019-02-25 23:45 | NUR ---
MIDLINE REMOVED AT THIS TIME BY ICU NURSE. CATHETER TIP WAS INTACT. INSERTION SITE NO REDDNESS NOTED. WILL ATTEMPT TO INSERT PERIPHERAL IV LINE AT THISTIME.
--- NOTE | 2019-02-26 01:00 | NUR ---
ROUNDS MADE. PT RESTING. BREATHING EVEN AND UNLABORED. NO SIGNS OF DISTRESS. IV PATENT, INFUISNG WELL. CALL BUTTON WITHIN REACH. SAFETY PRECAUTIONS IN PLACE. WILL CONTINUE TO MONITOR.
--- NOTE | 2019-02-26 04:00 | NUR ---
PT RESTING. BREATHING EVEN AND UNLABORED. NO SIGNS OF DISTRESS. CALL BUTTON WITHIN REACH. SAFETY PRECAUTIONS IN PLACE. WILL CONTINUE TO MONITOR.
[2019-02-26 05:46] VITALS: BP 137/71
--- NOTE | 2019-02-26 06:17 | NUR ---
PT SLEPT ON AND OFF THROUGHOUT THE NIGHT. BREATHING EVEN AND UNLABORED ON RA, NO SOB NOTED. MEDICATED PER EMAR. PT DENIES ANY PAIN. PT UNCOOPERATIVE WITH CARE AND NON COMPLIANT WITH TURNING AND REPOSITIONING. AT BEDSIDE. CALL BUTTON WITHIN REACH. SAFETY PRECAUTIONS IN PLACE. WILL CONTINUE TO MONITOR AND ENDORSE CARE TO DAY SHIFT RN.
[2019-02-26 06:32] LABS: BASOPHIL % 0.6 % (0-2)
[2019-02-26 06:56] LABS: CALCIUM 7.7 mg/dL (8.5-10.1); CREATININE SERUM 1.9 mg/dL (0.7-1.3); POTASSIUM SERUM 3.2 mmol/L (3.5-5.1)
[2019-02-26 07:00] LABS: PLATELET COUNT 100 x10^3mcL (130-400); RED CELL DISTRIBUTION WIDTH 22.8 % (11.5-14.5)
[2019-02-26 07:05] LABS: MAGNESIUM 1.5 mg/dL (1.8-2.4); PHOSPHOROUS 2.4 mg/dL (2.5-4.9)
--- NOTE | 2019-02-26 07:23 | NUR ---
RECEIVED PT RESTING IN BED. NO ACUTE DISTRESS. AWAKE, ALERT, AND ORIENTED. NO C/O PAIN. CONTACT ISOLATION. RESP EVEN AND UNLABORED ON RA. HOB SLIGHTLY ELEVATED. PT REFUSED TO BE REPOSITIONED AND HAVE PREVALON BOOTS ON. DRESSING TO R HEEL C/D/I. IV TO LFA, NO REDNESS OR SWELLING TO IV SITE. PT USING URINAL TO VOID, URINALS AT BEDSIDE. AT BEDSIDE. FALL PRECAUTIONS. BED IN LOW POSITION, CALL LIGHT WITHIN REACH. WILL CONTINUE TO MONITOR.
--- NOTE | 2019-02-26 07:36 | NUR ---
PT AWAKE DENIES ANY PAIN. NO SIGNS OF DISTRESS. ENDORSED CARE TO DAY SHIFT RN, ALL QUESTIONS ADDRESSED.
[2019-02-26 08:22] VITALS: BP 145/70
--- NOTE | 2019-02-26 10:41 | NUR ---
PT HAD SMALL SOFT DARK GREEN BM. OPTIFOAM TO COCCYX WOUND CHANGED, Z GUARD APPLIED TO EXCORIATED PERINEAL AREA. PT REPOSITIONED FOR COMFORT. WILL CONTINUE TO MONITOR.
[2019-02-26 12:26] VITALS: BP 141/60
--- NOTE | 2019-02-26 12:33 | NUR ---
CALLED TO THE PICC LINE COMPANY TO ARRANGE FOR MIDLINE PLACEMENT. WILL AWAIT FOR CALL BACK. PT HAD SIGNED CONSENT AND HAD SIGNED INFORMED CONSENT. MATTI WILEY ASSIGNED TO THIS PT MADE AWARE OF ABOVE.
--- NOTE | 2019-02-26 13:20 | NUR ---
SPOKE WITH BEBA PICC LINE RN OVER THE PHONE REGARDING PT NEEDING MIDLINE PLACED. PER BEBA, SHE WILL BE COMING AROUND 5-6 PM TODAY. PT NOTIFIED. WILL CONTINUE TO MONITOR.
--- NOTE | 2019-02-26 17:25 | NUR ---
PICC LINE INEZ YODER AT BEDSIDE FOR INSERTION OF MIDLINE CATHETER.
--- NOTE | 2019-02-26 18:05 | NUR ---
MIDLINE PLACED BY PICC LINE RN TO R ARM, DRESSING C/D/I. PT REQUESTED TO HAVE IV TO LFA DC'D. IV DC'D WITH CATHETER INTACT. IV ANTBX INFUSING TO MIDLINE AT THIS TIME. WILL CONTINUE TO MONITOR.
--- NOTE | 2019-02-26 19:30 | NUR ---
RECEIVED PT FROM DAY SHIFT RN. PT AAOX4. DENIES JERNIGAN/DIZZINESS. BREATHING EVEN AND UNLABORED, NO SOB NOTED. TELE #30 AFIB. PT DENIES CHEST PAIN/PRESSURE. RIGHT UPPER ARM MIDLINE. RIGHT HEEL WOUND COVERED WITH DRESSING. PERINEAL/BUTTOCKS ERYTHEMA. COCCYX WOUND COVERED WITH OPTIFOAM. PT DENIES ANY DISTRESS. CALL BUTTON WITHIN REACH. SAFETY PRECAUTIONS IN PLACE. WILL CONTINUE TO MONITOR.
[2019-02-26 20:44] VITALS: BP 145/73
--- NOTE | 2019-02-27 01:00 | NUR ---
PT AWAKE. DENIES PAIN. NO SIGNS OF DISTRESS. PT REFUSED TO TURN AND REPOSITIONED. CALL BUTTON WITHIN REACH. SAFETY PRECAUTIONS IN PLACE. AT BEDSIDE. WILL CONTINUE TO MONITOR.
--- NOTE | 2019-02-27 04:01 | NUR ---
ROUNDS MADE. PT RESTING. BREATHING EVEN AND UNLABORED WITH NO SIGNS OF DISTRESS. CALL BUTTON WITHIN REACH. SAFETY PRECAUTIONS IN PLACE. CONTACT ISOLATION. WILL CONTINUE TO MONITOR.
--- NOTE | 2019-02-27 05:30 | NUR ---
PT REFUSED TO HAVE WOUND PHOTOS TAKEN AT THIS TIME.
[2019-02-27 05:47] VITALS: BP 141/70
--- NOTE | 2019-02-27 06:24 | NUR ---
PT SLEPT ON AND OFF THROUGHOUT THE NIGHT. BREATHING EVEN AND UNLABORED ON RA, NO SOB NOTED. MEDICATED PER EMAR. PT DENIES ANY PAIN. PT UNCOOPERATIVE WITH CARE AND NON COMPLIANT WITH TURNING AND REPOSITIONING. AT BEDSIDE. CALL BUTTON WITHIN REACH. SAFETY PRECAUTIONS IN PLACE. CONTACT ISOLATION. WILL CONTINUE TO MONITOR AND ENDORSE CARE TO DAY SHIFT RN.
[2019-02-27 07:13] LABS: BASOPHIL % 0.8 % (0-2)
[2019-02-27 07:17] LABS: PLATELET COUNT 102 x10^3mcL (130-400); RED CELL DISTRIBUTION WIDTH 23.6 % (11.5-14.5)
[2019-02-27 07:33] LABS: CALCIUM 7.6 mg/dL (8.5-10.1); CARBON DIOXIDE 21.2 mmol/L (21-32); CREATININE SERUM 1.7 mg/dL (0.7-1.3); POTASSIUM SERUM 3.5 mmol/L (3.5-5.1)
--- NOTE | 2019-02-27 07:37 | NUR ---
PT IN NO SIGNS OF DISTRESS. ENDORSED CARE TO DAY SHIFT RN, ALL QUESTIONS ADDRESSED.
--- NOTE | 2019-02-27 08:00 | NUR ---
SHIFT ASSESSMENT DONE. PATIENT A/A/OX4; BUT NOT CO-OP TO CARES. REFUSED SUGAR CHECK. TELE#30; A FIB; HR = 80'S. B/P =139/89. NO RESP DSITRESS ON RA. BREATHING SOUND DIMINISHED GENEVIEVE. O2 SAT 99%. RT PROTOCOL. ABD OBESE. TOLERATED DIET. NO N/V. 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 MID LINE TO R UPPER ARM. NS TKO. MIDLNE SITE CLEAN WITH DRSG INTACT. GENERAL EDEMA 1+. TOTAL CARE. BED REST. DENIED PAIN. CONTACT ISOLATION FOR C DIFF, MRSA (+) NARES AND WOUND. AT BED SIDE.
[2019-02-27 09:03] LABS: burr cell (echinocyte) 1+; rbc morphology (normal/abnorm) ABNORMAL (NORMAL); target cell (codocyte) 1+; tear drop cell (dacryocyte) 1+
[2019-02-27 09:27] VITALS: BP 139/89
--- NOTE | 2019-02-27 14:15 | NUR ---
REFUSED TO KCL PILL PO. DR. CHUA NOTIFED. PATIENT'S POTASSIUM LEVEL WAS 3.5 THIS AM.
--- NOTE | 2019-02-27 14:29 | NUR ---
PHYSICAL THERAPY DAILY NOTES CO-SIGN All documentation done by the Paper Handler for 02/27/19 has been reviewed. I agree with the documentation. Reviewed/Co-Signed by: Yoli Baldwin PT Documentation Done by: NJ GARCIA PTA
--- NOTE | 2019-02-27 17:00 | NUR ---
WOUND CARE GIVEN. COCCYX/BUTTOCK AND PERINEAL AREA SKIN EXCORIATION W/ REDNESS AND RASHES. Z GUARD APPLIED. OPTIFORM DRSG APPLIED TO COCCYX AREA. ABD FOLD AND GROIN AREA REDNESS/RESHED/EXCORIATION, INTERDRY APPLIED. REPOSITIONED PATEINT. C/O RECTAL AREA PAIN ON 10/12. TYLENOL WOULD BE GIVEN.
[2019-02-27 17:54] VITALS: BP 134/80
--- NOTE | 2019-02-27 18:57 | NUR ---
SLEEPING NOW. BREATHING EVANLY. MEDLINE PATENT. NO S/S OF PAIN NOW. ENDORSED CARE TO NOC NURSE.
--- NOTE | 2019-02-27 19:24 | NUR ---
RECEIVED PATIENT IN BED SLEEPING WITH NO SIGN OF DISTRESS, BREATHING EASY AND NONLABORSATTING AT 97% RA. TELE#30 AFIB ON MONITOR NO LYLA ATION OF CHEST DISCOMFORT. ABDOMEN ROUND, OBESE AND NONTENDER WITH ACTIVE BS. DRESSING TO RT HEEL CDI. SALINE LOCK TO MIDLINE DESEAN INTACT. WILL CONTINUE TO MONITOR. CALL LIGHT WITHIN REACH.
[2019-02-27 20:50] VITALS: BP 135/79
--- NOTE | 2019-02-27 23:41 | NUR ---
AWAKE THIS TIME ASSISTED PATINET WITH URINAL, VOIDED WITH 320ML TIM URINE OUTPUT. NO SIGN OF DISTRESS NOTED.
--- NOTE | 2019-02-27 23:56 | NUR ---
AT BEDSIDE THIS TIME. DUE ANTIBIOTIC IVPB GIVEN. WILL CONTINUE TO MONITOR.
--- NOTE | 2019-02-28 05:06 | NUR ---
SLEPT AT LONG INTERVALS, KEPT ON ISOLATION P[RCAUTION. REPOSITIONED FOR COMFORT. ALL NEEDS ATTENDED.
[2019-02-28 05:49] VITALS: BP 147/79
--- NOTE | 2019-02-28 07:00 | NUR ---
RECEIVED BEDSIDE REPORT FROM GROUTMAN NURSE AT THIS TIME. PATIENT RESTING IN BED WITH AT BEDSIDE. NO APPARENT DISTRESS OR DISCOMFORT NOTED. BREATHING EVEN AND UNLABORED. NO RESPIRATORY DISTRESS OR DISCOMFORT NOTED. PATIENT DENIES SHORTNESS OF BREATH. PATIENT TRANSFERRED FROM [facility] TO [facility]. TELE MONITOR RETURNED TO TRUCK SERVICE MANAGER. PATIENT DENIES CHEST PAIN/PRESSURE. MISLINE TO DESEAN PATENT AND INTACT. ALL QUESTIONS AND CONCERNS ADDRESSED. ALL NEEDS ATTENDED TO. ISOLATION PRECAUTION MAINTAINED. WILL CONTINUE TO MONITOR
[2019-02-28 08:23] LABS: CALCIUM 7.6 mg/dL (8.5-10.1); CARBON DIOXIDE 19.6 mmol/L (21-32); CREATININE SERUM 1.6 mg/dL (0.7-1.3); POTASSIUM SERUM 3.8 mmol/L (3.5-5.1)
[2019-02-28 08:25] LABS: BASOPHIL % 0.3 % (0-2)
[2019-02-28 08:51] LABS: RED CELL DISTRIBUTION WIDTH 22.8 % (11.5-14.5)
--- NOTE | 2019-02-28 08:52 | NUR ---
P.T. NOTES PATIENT REFUSES TO WORK W/ P.T., STATES HE DOES NOT NEED REHAB SERVICES, MADE CHARGE NURSE AWARE.
[2019-02-28 09:23] LABS: PLATELET COUNT 26 x10^3mcL (130-400)
--- NOTE | 2019-02-28 10:00 | NUR ---
MORNING MEDICATION ADMINISTERED. PATIENT REFUSED LOTRIMIN AT THIS TIME. PATIENT TOLERATED PEPCID WELL. NO APPARENT ADVERSE EFFECTS NOTED. ALL NEEDS ATTENDED TO. WILL CONTINUE TO MONITOR
--- NOTE | 2019-02-28 12:13 | NUR ---
Follow-up Nutrition Assessment: 217/B ROBERT MURPHY HR Dx: Sepsis, PNA, Acute renal failure PMHx; HTN, DM, GERD, CKD Stage IIIa Labs: (02/27) BUN 43H, CREAT 1.7H, HGB 9.1L Meds: D50%, flagyl, humulin, Pepcid, zofran Diet: CCHO PO Intake: (02/27), dinner 0%, breakfast, lunch 30%, (02/26) breakfast 50% Weights: (02/20) 273 kg, (02/21) 129.2 kg, (02/23) 129 kg, (02/28) 129.3 kg Skin: R heel wound, coccyx wound covered w/ optifoam [place]: 14 I/Os: (02/28) 2070/1680 (390) Edema: generalized edema GI: Last BM: 02/27 RDN Visit (02/28): Patient was alert and oriented and said that he ate all of his breakfast this morning. Patient denies N/V//C at this time and says that his diarrhea has been improving. Patient is willing to consume Anam for wound healing after explaining it's importance. Per progress note (02/27), PICC line placed on 02/26, will need 3 more days of antibiotics. Kidney function is improving Cr. 1.7 base line is 1.4. Patient continues to refuse any oral medications except oral vancomycin for C diff. Estimated Nutritional Needs Based on adjusted body weight 132 kg Energy: 8505-2050 kcal/d (25-30 kcal/kg) Protein: 79-105 g/d (0.6-0.8 g/kg) - CKD stage 3 Fluid: per doctor Nutrition Diagnosis 1. Inadequate oral intake related to possible poor appetite as evidenced by pt. refusing to eat, documented PO 30%. (Ongoing) 2. Morbid obesity related to increased energy intake as evidenced by BMI 36.6 kg/m2. Intervention 1. Recommend continuing CCHO diet. 2. Recommend Anam BID for wound healing. Discussed recommendations with Dr. Osmel Giles. Monitor/Evaluate Goal: Have pt meet at least 75% of estimated needs Monitor: PO intake, Labs, GI function F/U in 3-5 days as moderate risk 03/03-03/05
--- NOTE | 2019-02-28 12:14 | NUR ---
PATIENT REFUSED ACCUCHECK AT THIS TIME. ALL NEEDS ATTENDED TO. WILL CONTINUE TO MONITOR
--- NOTE | 2019-02-28 14:59 | NUR ---
PATIENT RESTING COMFORTABLY IN BED AT THIS TIME. NO APPARENT DISTRESS OR DISCOMFORT NOTED. BREATHING EVEN AND UNLABORED. IV PATENT AND INTACT. ALL NEEDS ATTENDED TO. WILL CONTINUE TO MONITOR
--- NOTE | 2019-02-28 16:30 | NUR ---
PATIENT REFUSED ACCUCHECKS AT THIS TIME. ALL NEEDS ATTENDED TO. WILL CONTINUE TO MONITOR
--- NOTE | 2019-02-28 18:40 | NUR ---
PATIENT RESTING COMFORTABLY IN BED AT THIS TIME. NO APPARENT DISTRESS OR DISCOMFORT NOTED. MIDLINE PATENT AND INTACT. ALL QUESTIONS AND CONCERNS ADDRESSED. ALL NEEDS ATTENDED TO. SAFETY PRECAUTIONS MAINTAINED. WILL ENDORSE ALL CARE TO BENEFITS MANAGER NURSE
--- NOTE | 2019-02-28 22:20 | NUR ---
Awake and verbally responsive. No respiratory distress noted on room air. Denies pain. Denies n/v. Right foot with dressing intact. Refused accucheck. Refused to be turned and repositioned. Educated pt.importance of turning and repositoning to prevent pressure injury but pt.showed lack of interest and doesn't want to be bothered. Contact isolation observed. Call light within reach. Will cont.to monitor.
--- NOTE | 2019-03-01 04:45 | NUR ---
Afebrile. No significant change in condition noted. Denies pain. Contact isolation c.diff (+), MRSA/MDRO/ESBL/E.coli wound, proper use of PPE and good hand hygiene observed. In no apparent distress.
[2019-03-01 06:25] VITALS: BP 145/75
--- NOTE | 2019-03-01 07:08 | NUR ---
PHYSICAL THERAPY DAILY NOTES CO-SIGN All documentation done by the Social Work Program Coordinator for 02/28 has been reviewed. I agree with the documentation. Reviewed/Co-Signed by: Yoli Baldwin PT Documentation Done by:NJ GARCIA PTA
[2019-03-01 07:19] LABS: BASOPHIL % 0.5 % (0-2)
--- NOTE | 2019-03-01 07:28 | NUR ---
RECEIVED HAND OFF REPORT FROM NIGHT NURSE. PATIENT LAYING SUPINE IN BED 217B, EYES CLOSED, BREATHING REGULAR AND UNLABORED APPARENTLY ASLEEP WITH NO DISTRESS NOTED. CALL LIGHT WITHIN REACH ON BED, FAMILY MEMEBER PRESENT IN ROOM, ALSO ASLEEP. WILL CONTINUE TO MONITOR
[2019-03-01 07:42] LABS: CALCIUM 7.4 mg/dL (8.5-10.1); CARBON DIOXIDE 19.3 mmol/L (21-32); CREATININE SERUM 1.5 mg/dL (0.7-1.3); POTASSIUM SERUM 3.3 mmol/L (3.5-5.1)
[2019-03-01 08:04] LABS: PLATELET COUNT 106 x10^3mcL (130-400); RED CELL DISTRIBUTION WIDTH 22.8 % (11.5-14.5)
--- NOTE | 2019-03-01 08:57 | NUR ---
WOKE PATIENT FOR ASSESSMENT, PATIENT REFUSING MAJORITY OF ASSESSMENT. PATKORINA AT BEDSIDE FOR VITALS, PATIENT REFUSED. PATIENT STATING HE DOES NOT WANT ANY MEDICATIONS THAT DO NOT GO INTO HIS IV. ADMINSITERED PEPCID IV, PATIENT REFUSED CLOTRIMAZOLE CREAM. PATIENT STATING HE WILL NOT WANT HIS BLOOD GLUCOSE CHECKED EITHER. PATIENT BED BOUND AND ENCOURAGED TO WORK WITH PHYSICAL THERAPIST WHEN HE ROUNDS. GOOD RANGE OF MOTION TO BUE, REFUSED TO MOVE BLE. REFUSING TO BE TURNED AND REPOSITIONED AT THIS TIME. CALL LIGHT WITHIN REACH, WILL CONTINUE TO MONITOR. AT BEDSIDE ATT HIS TIME
--- NOTE | 2019-03-01 10:30 | NUR ---
DR MARQUEZ ROUNDING ON PATIENT WITH TEAM. INFORMING PATIENT THAT HE NEEDS TO WORK WITH PHYICAL THERAPY. PT AT BEDSIDE TO TEST PATIENT'S ABILITY TO TRANSFER TO WHEEL CHAIR, PATIENT MAX ASSSITED TO SIT UP BUT WOULD NOT SIT FULLY ON SIDE OF BED AND REFUSED TO STAND TO TRANSFER TO WHEELCHAIR. DR MARQUEZ RETURNED AND WAS INFORMED OF REFUSAL TO SIT IN WHEEL CHAIR. PATIENT STATES THAT HE WILL ONLY DO THE TRANSFER WHEN HE IS TO BE DISCHARGED. PATIENT AND WHAT PATIENT TO BE RELEASED BACK TO 'S CARE. PATIENT IS HOMELESS AND LIVES IN [place]. DR MARUQEZ [facility] SS CONSULT IN FOR TRANSFER TO [facility]
--- NOTE | 2019-03-01 10:30 | NUR ---
INFORMED DR CHUA OF PATIENT POTASSIUM LEVEL 3.3 AND RECEIVED NO NEW ORDERS, CONTINUE TO MONITOR
--- NOTE | 2019-03-01 12:28 | NUR ---
PATIENT CALLED REQUESTING TO BE REPOSIITONED. WITH HELP OF PATEINT WAS REPOSITION. PATIENT REFUSED ASSESSMENT OD WOUNDS TO BACK. VISUALIZED HEEL DRESSING, CDI. DEMANDING THAT REDRESS HEEL, NOT STAFF. PATIENT CONSENTED TO HAVE BLOOD SUGAR CHECKED, RESULT WAS 118. NO INSULIN COVERAGE NEEDED. CALL LIGHT WITHIN REACH OF PATIENT, BED IN LOWEST POSITION.
--- NOTE | 2019-03-01 15:18 | NUR ---
PHYSICAL THERAPY DAILY NOTES CO-SIGN All documentation done by the Culinary Manager for 03/01/19 has been reviewed. I agree with the documentation. Reviewed/Co-Signed by: Yoli Baldwin PT Documentation Done by: NJ GARCIA PTA
--- NOTE | 2019-03-01 18:15 | NUR ---
DR ODOM ORDERED PO POTASSIUM, 40mEq. PATIENT CONSENTED TO TAKING TABLETS.
--- NOTE | 2019-03-01 19:42 | NUR ---
RECEIVED REPORT FROM AM NURSE. PT LAYING DOWN IN BED. PT AAOX4, DENIES CP/PRESSURE AT THIS TIME. BREATHING EVEN AND UNLABORED ON RA. NO ACUTE DISTRESS NOTED. DESEAN MIDLINE SALINE LOCK. PT REFUSED ASSESSMENT. BED AT LOWEST SETTING. SIDE RAILS X2 UP. CALL LIGHT WITHING REACH. WILL CONTINUE TO MONITOR.
--- NOTE | 2019-03-01 21:30 | NUR ---
PT REFUSED MEDICATION AND BLOOD SUGAR CHECK. ONLY TOOK PEPCID IV. STATES BLOOD SUGAR LEVELS ARE BEEN GOOD. WILL CONTINUE TO MONITOR.
--- NOTE | 2019-03-02 00:12 | NUR ---
EPISODE OF GREENISH LOOSE STOOL AND YELLOW URINE. ASSISSTED WITH DEJUAN CARE OF PT. Z-GUARD CREAM APPLIED BY . CHANGED SHEETS. PT C/O PAIN ON MOVEMENT. REFUSED TO BE CLEANED BY CUT PLUG PACKER AIR BRUSH OPERATOR. BED AT LOWEST SETTING. SIDE RAILS X2 UP. CALL LIGHT WITHING REACH. WILL CONTINUE TO MONITOR.
--- NOTE | 2019-03-02 06:35 | NUR ---
PT SLEPT AT INTERVALS THROGHOUT THE NIGHT. BREATHING EVEN AND UNLABORED ON RA. NO ACUTE DISTRESS NOTED. REFUSED BLOOD SUGAR CHECK THIS AM. REFUSED TO BE REPOSITIONED. REFUSED WOUND CARE. STATES WILL HELP WITH CARE. BED AT LOWEST SETTING. SIDE RAILS X2 UP. CALL LIGHT WITHING REACH. AT BEDSIDE. WILL ENDORSE CARE TO AM NURSE.
--- NOTE | 2019-03-02 07:05 | NUR ---
RECEIVED PT FROM NIGHT NURSE. PT IS LAYING DOWN IN BED WITH HOB UP. PT LOOKS TO BE IN NO ACUTE DISTRESS AT THIS TIME AND DENIES ANY PAIN. RESPRIATIONS ARE EVEN AND UNLABORED ON ROOM AIR. CONTACT PRECATIONS IMPLEMENTED. FAMILY MEMBER AT BEDSIDE CHAIR. IV SITE PATENT AND H/L. BED IN LOWEST POSITION, CALL LIGHT WITHIN REACH. WILL CONTINUE TO MONITOR.
[2019-03-02 07:17] LABS: PLATELET COUNT 111 x10^3mcL (130-400); RED CELL DISTRIBUTION WIDTH 22.6 % (11.5-14.5)
[2019-03-02 07:40] LABS: CALCIUM 7.5 mg/dL (8.5-10.1); CARBON DIOXIDE 20.9 mmol/L (21-32); CREATININE SERUM 1.4 mg/dL (0.7-1.3); POTASSIUM SERUM 3.5 mmol/L (3.5-5.1)
--- NOTE | 2019-03-02 09:30 | NUR ---
TURNED AND REPOSITIONED PT. PERIAREA AND INGUINAL AREA ERYTHEMA AND TENDER TO TOUCH. CLEANED AREA. PT REFUSED TO HAVE DRESSING APPLIED AND FAMILY MEMBER AND PT REQUESTED TO ONLY HAVE ZGUARD APPLIED STATING THAT "NOTHING ELSE HELPS." PREVIOUS STAFF STATED A STAGE III PRESSURE ULCER TO SACRAL COCCYZ PRESENT, ERYTHEMA NOTED TO AREA, NO SIGNS OF PRESSURE ULCER NOTED. FAMILY MEMBER STATED THAT SHE COMPLETED RIGHT HEEL DRESSING CHANGE AND PT REFUSED ASSESSMENT OF RIGHT HEEL BY NURSE. EDUCATED FAMILY MEMBER AND PT ON RIGHT HEEL DRESSING CHANGE, FAMILY MEMBER VERBALIZED UNDERSTANDING. INFORMED PT TO CALL WHEN GOING TO THE BATHROOM SINCE KEEPING SKIN DRY WILL HELP TO AID IN WOUND HEELING, PT STATED, "THAT WILL NOT HELP." WILL REASSESS PERIAREA FOR SOILAGE ROUTINELY. PT REFUSED INTERDRY TO ABD FOLDS AND STATED WOULD ONLY LIKE ZGUARD APPLIED TO THE AREA. WILL CONTINUE TO MONITOR AND ASSESS FOR SOILAGE.
[2019-03-02 09:38] VITALS: BP 114/66
--- NOTE | 2019-03-02 11:26 | NUR ---
PRIMARY NURSE AND WOUND CARE NURSE ATTEMPTED TO TAKE NEW PHOTOGRAPH OF WOUNDS. PT REFUSED PHOTOGRAPH, ASSESSMENT, REPOSITIONING AND TO ASSESSMENT FOR SOILAGE. PT EDUCATED UPON REFUSAL. PT STATED, "YOU CANNOT FORCE ME AND DO NOT TOUCH ME, THIS CONVERSATION IS OVER." WILL CONTINUE TO MONITOR. WILL NOTIFY
--- NOTE | 2019-03-02 11:35 | NUR ---
PT REFUSED ACUCHECK. EDUCATED PT UPON REFUSAL AND PT IGNORED EDUCATION AND KEPT EYES CLOSED, ASKED IF PT UNDERSTOOD AND PT CONTINUED TO IGNORE NURSE.
--- NOTE | 2019-03-02 11:51 | NUR ---
PT. REFUSES WOUND RE-EVALUATION AND WOUND PHOTOS, PRIMARY RN AT BED SIDE, RISK AND BENIFIT EXPLAINED TO PT. PT REFUSED X3 TIMES, DR. VÁZQUEZ NOTIFIED.
--- NOTE | 2019-03-02 13:51 | NUR ---
PT REFUSED REPOSITIONING WELL ASSESSMENT FOR SOILAGE. PT STATES, "I'M FINE, I DON'T NEED IT." EDUCATED PT ABOUT RISK FOR SKIN BREAKDOWN AND THE NEED FOR REPOSITIONING. PT SAID, "I UNDERSTAND, BUT I DO NOT WANT IT." WILL CONTINUE TO MONITOR.
--- NOTE | 2019-03-02 14:15 | NUR ---
PHYSICAL THERAPY NOTE ATTEMPTED FOR PHYSICAL THERAPY SCHEDULED SESSIONS. PATIENT REFUSED TODAY AND 3 CONSECUTIVE VISITS BEFORE. D/C FROM PHYSICAL THERAPY 2/2 NON-COMPLIANCE. END TO NSG FOR ADL AND MOB NEEDS
--- NOTE | 2019-03-02 16:55 | NUR ---
PT REFUSED REPOSITIONING AND ASSESSING FOR SOILAGE. PT STATES DOES NOT WANT TO BE TOUCHED.
--- NOTE | 2019-03-02 18:47 | NUR ---
PT IS LAYING DOWN IN BED WITH HOB UP. PT LOOKS TO BE IN NO ACUTE DISTRESS AT THIS TIME AND DENIES ANY PAIN. IV SITE PATENT WITH NO SIGNS OF ERYTHEMA OR SWELLING AND IS H/L. PT REFUSED REPOSITIONING AND TURNING. PT REFUSED TO ALLOW ASSESSMENT OF PERIAREA TO ASSESS FOR SOILAGE. PT EDCUATED UPON REFUSAL, AFTER EDUCATION, PT IGNORES ANYTHING ELSE BEING SAID. BED IN LOWEST POSITION, CALL LIGHT WITHIN REACH. WILL ENDORSE TO ONCOMING SHIFT.
--- NOTE | 2019-03-02 19:25 | NUR ---
RECEIVED PT LAYING IN BED, NO ACUTE DISTRESS OBSEREVED AT THIS TIME. PT DENIES PAIN OR DISCOMFORT AT THIS TIME. SHIFT REASSESSMENT LIMITED, PT REFUSING TO ALLOW ASSESSMENT AT THIS TIME, STATED "YOU DON'T NEED TO DO ALL THAT." PT IS CALM BUT UNCOOPERATIVE AND RESISTIVE TO CARE. PT IS AA/OX4, ABLE TO MAKE NEEDS KNOWN, SPEECH CLEAR AND APPROPRIATE. MED-SURG, NO TELE. +3 EDEMA TO RLE, +1 TO LLE. BREATHING ON RA, EVEN AND UNLABORED, NO SOB OR DYSPNEA OBSERVED. PT IS OBESE, UMBILICAL HERNIA NOTED, NO N/V. LAST BM EARLIER TODAY, DIARRHEA. INCONTINENT OF STOOL AND URINE, REFUSING PERICARE AT THIS TIME. PT STATED, "I WILL LET YOU KNOW WHEN I WANT TO BE REPOSITIONED AND CLEANED." PT OFFERED TO BE REPOSITIONED, BUT AGAIN REFUSED. PT EDUCATED FOR IMPORTANCE OF REPOSITIONING TO AVOID SKIN BREAKDOWN. NONAMBULATORY, BED BOUND. SKIN ASSESSMENT DEFERRED, PT REFUSED AT THIS TIME. PER DAY SHIFT RN, DID RIGHT HEEL DRESSING CHANGE EARLIER TODAY. DESEAN MOONE[place]ILINE IN PLACE, S/L, NO S&S INFILTRATION OR PHLEBITIS NOTED TO SITE. COMFORT AND SAFETY MEASURES IN PLACE. ALL NEEDS ASSESSED AND ATTENDED TO. CALL LIGHT WITHIN REACH. WILL CONTINUE TO MONITOR
--- NOTE | 2019-03-02 20:35 | NUR ---
PT REFUSED VITAL SIGNS AT THIS TIME. STATES ONLY WANTS HIS VITAL SIGNS TAKEN ONCE PER DAY. PT EDUCATED ON IMPORTANCE AND NEED TO TAKE VITAL SIGNS, RESISTIVE TO EDUCATION
--- NOTE | 2019-03-02 20:45 | NUR ---
PT REFUSED BEDSIDE ACCUCHECK AND AND LOTRIMIN CREAM. PT AGREED TO ORDERED PEPCID IVP. ADMINISTERED VIA DESEAN MIDLINE, SINGLE LUMEN. PATENT AND INTACT, FLUSHED EASILY WITHOUT S&S OF PHLEBITIS OR INFILTRATION NOTED.
--- NOTE | 2019-03-02 22:32 | NUR ---
PERICARE RENDERED BY MATHEMATICS PROFESSOR AND PT'S . PT HAD INCONTINENT URINE AND SOFT STOOL NOTED. LINENS CHANGED. PILLOWS PLACED TO PT'S LEFT AND RIGHT SIDE. CALL LIGHT WITHIN REACH. WILL CONTINUE TO MONITOR
--- NOTE | 2019-03-02 23:57 | NUR ---
PT REQUESTED TO BE REPOSITIONED HIGHER ONTO BED. PT ABLE TO HELP PULL SELF UP WITH BUE. NO ACUTE DISTRESS OBSERVED. PT'S AT BEDSIDE. CALL LIGHT WITHIN REACH. WILL CONTINUE TO MONITOR
--- NOTE | 2019-03-03 01:37 | NUR ---
PT REPOSITIONED AT THIS TIME TO RIGHT SIDE.
--- NOTE | 2019-03-03 03:00 | NUR ---
OFFERED TO REPOSITION PT, REFUSED AT THIS TIME. NO ACUTE DISTRESS OBSERVED. PT'S AT BEDSIDE. CALL LIGHT WITHIN REACH. WILL CONTINUE TO MONITOR
--- NOTE | 2019-03-03 05:42 | NUR ---
PT REFUSED REPOSITIONING AT THIS TIME
--- NOTE | 2019-03-03 06:05 | NUR ---
PT REFUSED VITAL SIGNS AT THIS TIME
--- NOTE | 2019-03-03 07:00 | NUR ---
RECIEVED PT IN BED A/OX4 WITH NO C/O PAIN, DISTRESS, SOB. PT REFUSES ASSESSMENT BY NURSE. CHARGE AWARE. DESEAN MIDLINE SINGLE LUMEN INTACT AND PATENT WITH NO REDNESS OR INFLAMMATION NOTED. SAFETY PRECAUTIONS IN PLACE, CALL LIGHT WITHIN REACH, WILL MONITOR.
[2019-03-03 07:19] LABS: CALCIUM 7.4 mg/dL (8.5-10.1); CARBON DIOXIDE 20.9 mmol/L (21-32); CREATININE SERUM 1.4 mg/dL (0.7-1.3); POTASSIUM SERUM 3.5 mmol/L (3.5-5.1)
[2019-03-03 07:40] LABS: BASOPHIL % 0.9 % (0-2)
[2019-03-03 08:02] LABS: PLATELET COUNT 126 x10^3mcL (130-400); RED CELL DISTRIBUTION WIDTH 22.9 % (11.5-14.5)
[2019-03-03 08:43] VITALS: BP 128/68
--- NOTE | 2019-03-03 10:58 | NUR ---
PT STABLE AT THIS TIME, NO C/O PAIN, DISTRESS, OR SOB. AT BEDSIDE. PT DENIES ANY NEED FOR ANY CARE AT THIS TIME. SAFETY PRECAUTIONS IN PLACE, CALL LIGHT WITHIN REACH, WILL CONTINUE TO MONITOR AND OFFER TREATMENT AND CARE.
--- NOTE | 2019-03-03 11:06 | NUR ---
PT REFUSED SCHEDULED BLOOD SUGAR CHECK. EXPLAINED RISKS/BENEFITS AND HE STILL REFUSED. AT BEDSIDE. CHARGE AWARE. WILL ASK AGAIN LATER.
[2019-03-03 14:03] VITALS: BP 128/68
--- NOTE | 2019-03-03 15:10 | NUR ---
PT RESTING IN BED WITH AT BEDSIDE. REPORTS NO PAIN, DISTRESS, OR SOB. ALL NEEDS MET. SAFETY PRECAUTIONS IN PLACE, CALL LIGHT WITHIN REACH, WILL CONTINUE TO MONITOR.
--- NOTE | 2019-03-03 17:58 | NUR ---
PT STABLE WITH NO C/O PAIN, DISTRESS, OR SOB. VS WNL. AT BEDSIDE. DESEAN MIDLINE INTACT AND PATENT WITH NO REDNESS OR INFLAMMATION NOTED AND LUMEN CAPED WITH BLUE CAP. WOUND CARE DONE BY PER PT REQUEST. SKIN KEPT CLEAN AND DRY ALL SHIFT BY FLIGHT CONTROL SPECIALIST, WHEN PT ALLOWED. PT REFUSED TO REPOSITION Q2 HOURS. EXPLAINED RISKS OF SKIN BREAKDOWN. SAFETY PRECAUTIONS IN PLACE, CALL LIGHT WITHIN REACH, WILL ENDORSE TO NIGHT NURSE.
--- NOTE | 2019-03-03 19:20 | NUR ---
RECEIVED PT FROM DAY SHIFT RN. PT CURRENTLY RESTING IN BED WITH FAMILY AT THE BEDSIDE. PT IS ALERT AND ORIENTED X4 AND ABLE TO FOLLOW COMMANDS. DENIES CHEST PAIN AND SHORTNESS OF BREATH ON ROOM AIR. PT REFUSING FULL ASSESSMENT AND REFUSING ACCU CHECKS AND MEDICATIONS. AWARE. NOTIFIED DR FRANCOIS THAT PT STATED "IF SOMEONE DOESNT REMOVE MY MIDLINE I WILL REMOVE IT MYSELF" RESIDENT TO DC. PT REFUSED IV PEPCID. INFORMED RESIDENT. SWITCHES TO PO PEPCID. PT SEEMS TO BE ANXIOUS AND ANGRY AT THIS TIME. SAFETY MEASURES ARE IN PLACE. BED IN THE LOWEST POSITION. CALL LIGHT WITHIN REACH. WILL CONTINUE TO MONITOR.
--- NOTE | 2019-03-03 20:46 | NUR ---
ADMINISTERED PEPCID PO. PT STILL REFUSING MEDS
--- NOTE | 2019-03-03 20:46 | NUR ---
PT REFUSING VITAL SIGNS
--- NOTE | 2019-03-03 21:34 | NUR ---
PT REFUSING IV ACCESS
--- NOTE | 2019-03-04 06:26 | NUR ---
PT SLEPT THROUGHOUT THE NIGHT WITH AT THE BEDSIDE. NO ACUTE DISTRESS NOTED. NO SIGNIFICANT CHANGES NOTED. SAFETY MEASURES IN PLACE. BED IN THE LOWEST POSITION. CALL LIGHT WITHIN REACH.
--- NOTE | 2019-03-04 06:32 | NUR ---
PT STILL REFUSING IV ACCESS. EDUCATED PT ON THE NEED FOR IV ACCESS.
[2019-03-04 06:40] VITALS: BP 107/62
--- NOTE | 2019-03-04 07:35 | NUR ---
RECEIVED PT. IN BED A/A/O X3. NO SOB, NO N/V NOTED. PT. DENIES ANY PAIN AT THIS TIME. PT. REFUSES NURSE TO AUSCULATE HIS HEART, LUNG, AND ABD. SOUNDS. PT. IS ON CONTACT ISOLATION FOR MRSA NARES, C. DIFF, AND MDRO E.COLI/MRSA/ESBL E. COLI FROM WOUND SITE (R HEEL). PT. IS ON AIR MATTRESS. PT. REFUSES SCD APPLICATION. PT. REFUSES IV H/L REINSERTION. SPOUSE AT BEDSIDE. BED IN LOW POS., CALL LIGHT WITHIN REACH. SIDE RAILS UP X3.
--- NOTE | 2019-03-04 08:20 | NUR ---
PT. REFUSES VITAL SIGNS TO BE TAKEN. PT. STATED " I ONLY LET THEM TAKE MY VITAL SIGNS ONCE A DAY IN READING COACH."
--- NOTE | 2019-03-04 10:27 | NUR ---
Follow up: Nutrition Assessment: Shalom Rosenberg Gene 217-B Dx: Sepsis, PNA and Acute renal failure Labs: (03/03) BUN:24H, Cr:1.4H, Ca:7.4L, H/H:8.6/26L Meds: Humulin, Pepcid, Tylenol and Zofran Diet: [facility] PO Intake: (03/03) B:0% L:20% D:20% (03/04) milk Weights: (02/28)129.3kg (03/04) 128kg Skin: pt refusing assessment per RN shift assessment note Clyde: 16 Edema: pt refusing assessment per RN shift assessment note Last BM:02/24 Per progress note 03/03, pt is medically cleared and is awaiting SNF placement. Pt admits to feeling better with no complaints. RD spoke to RN and COMMERCIAL TITLE EXAMINER, per COMMERCIAL TITLE EXAMINER pt only drank milk this morning and is refusing vitals. Estimated Nutritional Needs Based on adjusted body weight: 100kg Energy:4142-9326 kcal/day (30-35kcal/kg for wound healing) Protein:100-150 g/day (1.0-1.5g/kg for wound healing) Fluid: per MD Nutrition Diagnosis: 1. Increased nutrient needs related to altered skin integrity as evidenced by pt with stage 3 PU (ongoing) 2. Inadequate oral intake related to poor appetite as evidenced by pt refusing to eat and documented PO 30% (ongoing) Intervention: 1. Recommend continue CCHO diet. 2. Recommend MVI, Zinc and Anam BID for wound healing. Monitor/Evaluate: Previous goal: Goal: Have pt meet at least 75% of estimated needs (not met) Goal: Have pt meet at least 75% of estimated needs, wound healing Monitor: PO intake, Labs, GI function, weights and skin integrity F/U in 2-3 days as high risk: 03/06-
--- NOTE | 2019-03-04 10:28 | NUR ---
1. Recommend continue CCHO diet. 2. Recommend MVI, Zinc and Anam BID for wound healing.
--- NOTE | 2019-03-04 11:45 | NUR ---
ATTEMPTED TO DO BEDSIDE BLOOD SUGAR CHECK. PT. STATED " EVERYTHING IS FINE. I DON'T NEED ANY BLOOD SUGAR CHECK."
--- NOTE | 2019-03-04 13:00 | NUR ---
ATTEMPTED TO DO WOUND CARE TO R HEEL AND TO SACRAL-COCCYGEAL AREA. PT. REFUSES THERAHONEY GEL AND OPTIFOAM TO BE APPLIED TO WOUND SITE. PT. ALSO REFUSED DRESSING CHANGE TO R HEEL WOUND. AT BEDSIDE AND STATED " I'M THE ONE WHO IS DOING THE WOUND CARE FOR MY ." PT. ONLY ALLOWS Z-GUARD CREAM TO BE APPLIED TO ABD. FOLDS, GENEVIEVE. GROINS, PERINEUM, AND BUTTOCKS.
--- NOTE | 2019-03-04 19:35 | NUR ---
REMAINS IN STABLE CONDITION AT THIS TIME. WILL CONTINUE TO MONITOR.
--- NOTE | 2019-03-04 19:56 | NUR ---
RECEIVED AWAKE AND VERBALLY RESPONISVE, PT REFUSED TO BE ASSESSED. WANTS ON TO BE SCRATCH AT THE BACK, EXPALINED PT HE IS DIABETISM SKUIN INTEGRITY IS VERY FRAGILE. EXPLAINED THE RISKS BUT NO AVAIL. PT UNCCOPERATIVE WITH PLAN OF CARE. PLACED CALL LIGHT WITHIN REACH, INSTRUCTED TO CALL FOR ANY ASSISTANCE NEEDED,
--- NOTE | 2019-03-04 22:19 | NUR ---
AT 2019, PT C/O SWELLING AND SLIGHT REDNESS ON HIS RT ARM.INSTRUCTED TO ELEVATE WITH PILLOW. SUGGESTED K PAD WARM COMPRESS TO AFFECTED AREA AND PT. AGREED. CALLED DR AC AND GOT AN ORDER FOR K PAD AT 2026. PRIMARY RN MADE AWARE.
--- NOTE | 2019-03-04 22:24 | NUR ---
AT 2099, WHEN PRIMARY RN WENT IN THE ROOM TO SET UP THE K PAD, PATIENT WAS MAD SAYING HE DOES NOT WANT THE MACHINE (K PAD) POINTING INTO IT. AT 2199 WHEN THE MANUAL WINDER WENT TO CHECK ON HIM AND FOUND OUT THAT HE WAS SOAKED WITH URINE AND WAS OFFERED TO BE CHANGED, PT REFUSED AND SENT HER OUT OF HIS ROOM. HE ASKED FOR THE HEATING PAD FOR HIS RT ARM INSTEAD. AT 2214, PRIMARY RN AND MYSELF WENT IN THE ROOM THINKING HE CHANGED HIS MIND BY ALLOWING US TO SET UP THE K PAD BUT BY THE TIME WE STEP IN HIS ROOM HE WAS MAD/RUDE STATED "I DON'T WANT THAT GODDAMM MACHINE IN HERE" EVEN AFTER MY EXPLANATION. DESPATCH CLERK MADE AWARE OF THIS INCIDENT.
--- NOTE | 2019-03-05 00:01 | NUR ---
AT BEDSIDE , STILL REFUSING SCHEDULED MEDICATIONS TO BE TAKEN. EXPLAINED THE RISKS/BENEFITS BUT NO AVIAL.
[2019-03-05 06:41] VITALS: BP 118/70
--- NOTE | 2019-03-05 06:44 | NUR ---
STILL REFUSING BLOOD SUGAR CHECK . VERY UNCOOPERATIVE WITH P-TAMEKA OF CARE. EXPLAINED THE RISKS /BENEFITS BUT NO AVAIL. WIF AT BEDSIDE AWARE OF PATIENTS' BEHAVIOR.
--- NOTE | 2019-03-05 07:45 | NUR ---
RECEIVED PATIENT RESTING IN BED WITH EYES CLOSED EASILY AROUSABLE TO VERBAL STIMULI, PATIENT A/O X3, CLEAR SPEECH. BREATHING EVEN AND UNLABBORED ON ROOM AIR, DENIES SOB, NO DISTRESS NOTED, DENIES CHEST PAIN, DENIES ANY PAIN. PATIENT RESISTIVE TO CARE, REFUSED VITAL SIGNS, STATED THEY WERE TAKEN THIS MORNING AND ARE ONLY TAKEN ONCE A DAY. PATIENT REFUSED FURTHER ASSESSMENT. ASLEEP AT BEDSIDE. CONTACT ISOLATION PRECAUTIONS MAINTAINED. INSTRUCTED PATIENT TO CALL FOR ASSISTANCE IF NEEDED. SAFETY PRECAUTIONS MAINTAINED. MAGI BONILLA.
--- NOTE | 2019-03-05 08:53 | NUR ---
PATIENT REFUSED MORNING MEDICATION, WHEN INFORMED WHICH MEDICATIONS WHERE TO BE GIVEN PATIENT STATED "GOODBYE". WILL NOTIFY
--- NOTE | 2019-03-05 09:50 | NUR ---
ROUNDS MADE- DR. BENSON IN TO SPEAK WITH PATIENT.
--- NOTE | 2019-03-05 11:25 | NUR ---
PATIENT RESTING IN BED COMFORTABLY NO DISTRESS NOTED, AT BEDSIDE. PATIENT REFUSED ACCUCHECK, BUT AGREED TO HAVE BLOOD DRAW. CALLED LAB AND NOTIFIED YANY. ALL NEEDS ATTENDED TO, SAFETY PRECAUTIONS MAINTAINED. WILL MONITOR.
--- NOTE | 2019-03-05 12:08 | NUR ---
DR. Stephane LYNCH AT BEDSIDE TO SPEAK WITH PATIENT.
[2019-03-05 12:58] LABS: CALCIUM 7.5 mg/dL (8.5-10.1); CARBON DIOXIDE 21.4 mmol/L (21-32); CREATININE SERUM 1.6 mg/dL (0.7-1.3); POTASSIUM SERUM 3.6 mmol/L (3.5-5.1)
[2019-03-05 13:02] LABS: MAGNESIUM 1.4 mg/dL (1.8-2.4); PHOSPHOROUS 2.9 mg/dL (2.5-4.9)
[2019-03-05 13:13] LABS: BASOPHIL % 1.7 % (0-2); PLATELET COUNT 179 x10^3mcL (130-400)
--- NOTE | 2019-03-05 13:35 | NUR ---
HEATING PAD APPLIED TO DESEAN PER MD ORDERS, PATIENT EDUCATED ON PURPOSE, VERBALIZED UNDERSTANDING, AT BEDSIDE. DESEAN ELEVATED ON PILLOW. ALL NEEDS ATTENDED TO, SAFETY PRECAUTIONS MAINTAINED. WILL MONITOR.
--- NOTE | 2019-03-05 13:52 | NUR ---
HYDRAULIC ENGINEER AT BEDSIDE.
--- NOTE | 2019-03-05 14:25 | NUR ---
DR. BENSON PAGED REGARDING LAB RESULTS AND TO INFORM HIM PATIENT AND STATED PATIENTS BOWEL MOVEMENTS ARE BECOMING MORE FREQUENT AND "WATERY AGAIN." PATIENT STATED HE HAS HAD X4 BM TODAY SO FAR AND WANTS THE DOCTOR TO BE INFORMED. WILL CARRY OUT PATIENTS REQUEST. MICHAEL BANEGAS COMPLETE AT THIS TIME.
--- NOTE | 2019-03-05 15:15 | NUR ---
RECEIVED CALL BACK FROM DR. BENSON AND INFORMED HIM PATIENT AND STATED PATIENT IS HAVING MORE FREQUENT BM'S AND ARE BECOMING MORE WATERY, X4 WATERY BM TODAY SO FAR, PATIENTS AT BEDSIDE AND HELPS CLEAN PATIENT. INFORMED DR. BENSON THAT PER CHARTING PATIENT HAD X2 LOOSE BM YESTERDAY DURING DAY SHIFT 03/04/19. PATIENT POSITIVE FOR C.DIFF, RECEIVED VANCOMYCIN X10 DAYS WITH LAST DOSE ON 02/28/19. DR. BENSON ALSO MADE AWARE OF MG 1.4. RECEIVED TELEPHONE ORDER FOR MAG-OXIDE 400 MG PO X1 DOSE NOW, AND X1 DOSE AT BEDTIME, AND RECHECK MAG LEVEL TOMORROW MORNING. ALSO RECEIVED TELEPHONE ORDER FOR VANCOMYCIN 250 MG PO Q6H PO X10 DAYS. ORDERS REPEATED AND CONFIRMED. WILL CARRY OUT ORDER.
--- NOTE | 2019-03-05 15:40 | NUR ---
PATIENT RESTING IN BED COMFORTABLY, NO DISTRESS NOTED, AT BEDSIDE. INFORMED PATIENT THAT DR. BENSON WAS INFORMED PATIENT IS HAVING MORE FREQUENT/WATERY BM AND RECEIVED ORDERS FROM DR. BENSON FOR VANCOMYCIN PO X10 DAYS (SEE ORDERS). PATIENT STATED "FOR WHAT, ITS POINTLESS" PATIENT REFUSING TO TAKE VANCO AND WHEN EDUCATED PATIENT ON PURPOSE OF MEDICATION PATIENT REFUSED AGAIN AND STATED "NO, IT ISNT GOING TO WORK." PATIENT ALSO MADE AWARE HIS MAG IS 1.4 AND RECEIVED ORDERS FOR ONE TIME DOSE OF MAG-OXIDE NOW AND ONE TIME DOSE AT BEDSIDE, PATIENT AGREEABLE TO TAKE MAGNESIUM BUT AGAIN REFUSING VANCOMYCIN. WILL PAGE DR. BENSON AND INFORM HIM.
--- NOTE | 2019-03-05 15:56 | NUR ---
RECEIVED CRITICAL VALUE OF [facility], DR. BENSON PAGED WAITING CALL BACK.
--- NOTE | 2019-03-05 16:53 | NUR ---
DR. BENSON PAGED REGARDING USV RUE RESULTS.
--- NOTE | 2019-03-05 17:00 | NUR ---
RECEIVED CALL BACK FROM DR. BENSON, INFORMED HIM OF USV RUE RESULTS. RECEIVED TELEPHONE ORDER FOR ELIQUIS 10 MG PO BID X7 DAYS AND THEN CHANGE TO ELIQUIS 5 MG PO BID. REPEATED AND CONFIRMED ORDER. WILL CARRY OUT ORDER.
--- NOTE | 2019-03-05 18:26 | NUR ---
PATIENT SITTING UP IN BED RESTING COMFORTABLY WITH EYES CLOSED, EASILY AROUSABLE TO VERBAL STIMULI. PATIENT EDUCATED ON REASON FOR ELIQUIS PO, PATIENT VERBALIZED UNDERSTANDING AND TOOK MEDICATION WITH NO DIFFICULTY. PATIENT EDUCATED AGAIN ON REASON FOR NEW ORDER FOR VANCOMYCIN PO, BUT PATIENT REFUSED STATED "LISTEN JAMA TAKEN THAT MEDICATION THREE TIMES AND IT DOES NOTHING SO STOP BRINGING IT UP, STOP." FOLLOWED PATIENTS WISHES PATIENT STARTED TO GET AGITATED REGARDING VANCOMYCIN PO. RUE ELEVATED ON PILLOW. ALL NEEDS ATTENDED TO, SAFETY PRECAUTIONS MAINTAINED. WILL ENDORSE CARE TO ONCOMING NURSE.
--- NOTE | 2019-03-05 19:30 | NUR ---
PT RECIEVED FROM DAY NURSE. PT RESTING IN BED. PT DENIED ASSESMENT AT THIS TIME. BREATHING E/U. NO S/S OF PAIN OR DISCOMFORT NOTED. NO S/S OF ACUTE DISTRESS NOTED AT THIS TIME. BED AT LOWEST POSITION. CALL LIGHT WITHIN REACH. WILL CONTINUE TO MONITOR.
--- NOTE | 2019-03-06 05:50 | NUR ---
PT RESTING IN BED COMFORTABLY AT THIS TIME. AT BEDSIDE. PT DENIES PAIN OR DISCOMFORT. PT REFUSED ACCUCHECK AND VANC PO THIS AM. DR AC AWARE OF PTS REFUSAL OF VANC. BREATHING E/U AT THIS TIME. NO ACUTE DISTRESS THIS SHIFT. BED AT LOWEST POSITION. CALL LIGHT WITHIN REACH. WILL ENDORSE TO DAY NURSE.
--- NOTE | 2019-03-06 07:45 | NUR ---
HANDOFF REPORT FROM INEZ MUELLER RECEIVED. PATIENT AWAKE AND NOT IN ANY DISTRESS. STATED "THE OTHER PLACE ACROSS THE STREET GIVE ME INJECTION ON MY BELLY. THE SMALL ONE. I WANT THAT" DENIES ANY DISCOMFORT. IN THE ROOM ASLEEP. INSTRUCTED TO CALL RN FOR ASSIST. CALL DEL ROSARIO WITHIN REACH. AIR MATTRESS IN USE.
--- NOTE | 2019-03-06 09:44 | NUR ---
SEEN BY MD BENSON. LOVENOX TO START TODAY IN PLACE OF ELOQUIS.
--- NOTE | 2019-03-06 09:47 | NUR ---
" ONCE THE SHOT (LOVENOX) THATS FINE". REFUSED LOTRIMIN,PEPCID.
--- NOTE | 2019-03-06 11:59 | NUR ---
RECEIVED FIRST DOSE OF LOVENOZ ORDERED. OTHERWISE REFUSED OTHER MEDS DUE AND ACCU CHECK.
--- NOTE | 2019-03-06 13:16 | NUR ---
1. Recommend continue BOBBIN WINDER TENDER diet with Ensure pudding. 2. Recommend continue Anam Bid for wound healing.
--- NOTE | 2019-03-06 13:16 | NUR ---
Follow-up Nutrition Assessment: Shalom Rosenberg, 217B Dx: Sepsis, PNA and acute renal failure Labs: (03/05) BH, BUN:20H, Cr:1.6H, H/H:8.2/25L, Ca:7.5L Meds: Eliquis , Humulin, Pepcid, Tylenol, Ultram, Vancomycin, Zofran Diet: CCHO PO Intake: no PO intake recorded since 03/04, pt was eating 0-20% Weights: Skin: refuses assessment Clyde: 16 Edema: pt refused assessment GI: active bowel sounds, denies N/V Last BM:03/05 Per progress note 03/05, pt with c/o some pain and swelling in his right arm. Disposition, pt is awaiting SNF placement. Pt wanted [facility] but per CM, [facility] has declined to accept the patient. During visit, pt was seen sitting up in bed. Pt did not want to talk. Encouraged patient to eat. No GI issues per RN note. Estimated Nutritional Needs Based on adjusted body weight:100kg Energy: kcal/day (30-35kcal/kg for wound healing) Protein: 100-150g/day (1.0-1.5g/kg for wound healing) Fluid: per MD Nutrition Diagnosis: 1. Increased nutrient needs related to altered skin integrity as evidenced bt stage 3 PU (ongoing) 2. Inadequate oral intake related to poor appetite as evidenced by pt refusing to eat documented PO 30% (ongoing) Intervention: 1. Recommend continue SENIOR MECHANICAL PROJECT MANAGER diet with Ensure pudding. 2. Recommend continue Anam Bid for wound healing. Monitor/Evaluate: Previous goal: PO intake of 75% of estimated needs (not met) Goal: PO intake of 75% of estimated needs and wound healing Monitor: PO intake, Labs, GI function and skin integrity F/U in 2-3 days as high risk:03/08-
--- NOTE | 2019-03-06 14:42 | NUR ---
ASLEEP. RR- 17 AND REGULAR. CALL DEL ROSARIO WITHIN REACH.
--- NOTE | 2019-03-06 16:11 | NUR ---
CONTINUES TO REFUSE TURNING, DRESSING CHANGES, ASSESSMENT. "I AM FINE" THEN CLOSED HIS EYES. INSTRUCTED TO CALL RN FOR ANY NEED.
--- NOTE | 2019-03-06 17:40 | NUR ---
REFUSED ACCU CHECK AND VANCOMYCIN PO. "I AM FINE".
--- NOTE | 2019-03-06 18:32 | NUR ---
ESCORTED OFF THE FLOOR. NOT IN ANY DISTRESS. DISCHARGED TO HOME.
--- NOTE | 2019-03-06 19:00 | NUR ---
RECEIVED PT IN BED RESTING. NO ACUTE RESPIRATORY DISTRESS NOTED. DENIES ANY PAIN/ DISCOMFORT AT THIS TIME. FOOD TRAY AT BEDSIDE NEVER BEEN TOUCHED FOR DINNER. ENCOURAGED PT TO EAT DINNER. PT STATED " I'AM NOT HUNGRY. DONT WANNA EAT, TAKE THE TRAY OUT". PT REFUSED HEAD TO TOE ASSESSMENT. REFUSED LUNG AUSCULTATION. AIRMATTRESS IN PLACED. NO IV ACCESS. BED IN LOWEST POSITION,CALL LIGHT WITHIN REACH. WILL CONTINUE TO MONITOR.
--- NOTE | 2019-03-06 19:20 | NUR ---
HANDOFF REPORT GIVEN TO INEZ WREN.
--- NOTE | 2019-03-06 20:27 | NUR ---
PT REFUSED V/S, ACCUCHECK, AND OTHER MEDICATIONS. PER PT ONLY LOVENOX IS OKAY. WILL CONTINUE TO MONITOR.
--- NOTE | 2019-03-07 00:39 | NUR ---
PT REFUSED VANCOMYCIN PO.
--- NOTE | 2019-03-07 05:05 | NUR ---
PT REMAINED ASLEEP WITH AT BEDSIDE. REFUSED TO BE TURNED AND ACCUCHECKS. DENIES ANY PAIN AT THIS TIME. NO SOB NOTED. BED IN LOWEST POSITION,CALL LIGHT WITHIN REACH. WILL CONTINUE TO MONITOR.
[2019-03-07 05:46] VITALS: BP 130/73
[2019-03-07 06:38] LABS: BASOPHIL % 1.3 % (0-2); PLATELET COUNT 183 x10^3mcL (130-400)
[2019-03-07 06:52] LABS: RED CELL DISTRIBUTION WIDTH 20.9 % (11.5-14.5)
[2019-03-07 06:57] LABS: MAGNESIUM 1.3 mg/dL (1.8-2.4)
--- NOTE | 2019-03-07 07:30 | NUR ---
PT ENDORSE TO ME THIS MORNING, LAYING IN BED RESTING/ AA/O X4, BREATHING EVEN AND UNLABORED ON RA, NO ACUTE RESP DISTRESS OR SOB NOTED. MEDSURG/ DENEIS ANY CP OR PRESSURE. EDEMA NOTED DESEAN. INCONTINENT. BEDBOUND/ REPOSITION Q 2 HRS/ AIR MATTRESS. REDNESS NOTED TO ABD FOLDS/ MARTHA, RIGHT HEEL ULCER WRAPED WITH GAUZE/ INTACT. PT CURRENTLY REFUSING IV ACCESS PER NIGHT NURSE/ AWARE. CALL LIGHT IN REACH. BED IN LOW POSITION, X2 SIDE RAIL UP. WILL CONTINUE TO MONITOR.
--- NOTE | 2019-03-07 07:32 | NUR ---
CARE ENDORSED TO DAY NURSE BRISEYDA. ALL QUESTION AND CONCERN WERE ADDRESSED.
--- NOTE | 2019-03-07 09:00 | NUR ---
PT REFUSING AM LABS, DR. MARIE AND TEAM MADE AWARE.
--- NOTE | 2019-03-07 09:34 | NUR ---
PT REFUSING MG IV, REFUSING TO ALLOW ME TO RE-INSERT NEW IV. DR. MARIE MADE AWARE.
--- NOTE | 2019-03-07 10:37 | NUR ---
ASSISTED OUTBOARD MOTOR INSPECTOR TO CHANGE PT, PT HAD X1 LOOSE STOOL. OPTIFORM TO BUTTOCKS CHANGES/ CDI. ASSIST WITH REPOSITIONING. WILL CONTINUE TO MONITOR.
--- NOTE | 2019-03-07 12:09 | NUR ---
PT REFUSING TO TAKE VANCOMYCIN PO, DID ALLOW ME TO CHECK HIS ACCU 101. DR. MARIE AWARE OF THE REFUSE OF VANCO PO.
--- NOTE | 2019-03-07 15:46 | NUR ---
ASSISTED PT WITH CHANGING, APPLIED CDI OPTIFORM TO BUTTOCKS. PT REFUSE TO ALLOW ME TO LOOK OR CHANGES WOUND DRSG TO RIGHT HEEL. PT STATED "THATS MY WIFES JOB, SHE CHANGES MY DRESSING". PT REFUSE TO BE PLACED ON THE RIGHT SIDE WHEN IT WAS TIME TO CHANGE POSITIONS. PT STATED " I ONLY WANT ONE PILLOW ON THE RIGHT AND LEFT SIDES OF MY BUTTOCKS". DR. FRANK PERALES.
--- NOTE | 2019-03-07 16:57 | NUR ---
PT REFUSE TO TAKE PO VANCOMYCIN, DR. MARIE MADE AWARE. DID ALLOW ME TO TAKE ACCU CK 99. CALL LIGHT IN REACH. BED IN LOW POSITTION, X2 SIDE RAILS UP BY NURSING STATION. WILL CONTINUE TO MONITOR.
--- NOTE | 2019-03-07 18:23 | NUR ---
NO ACUTE CHANGES AT THIS TIME, NO ACUTE RESP DISTRESS OR SOB NOTED. PT IS LAYING IN BED RESTING WITH EYES CLOSE/ EASILY AROUSABLE. WILL ENDORSE TO INCOMING RN.
--- NOTE | 2019-03-07 19:15 | NUR ---
PT RECEIVED A/O X4, ABLE TO MAKE NEEDS KNOWN. MED-SURG, DENIES ANY CP/PRESSURE. PULSES PALAPBLE, EDEMA TO DESEAN. PT REFUSING TO ELEVATED DESEAN. BREATHING IS EVEN AND UNLABORED ON RA, NO RESP DISTRESS OBSERVED. ABD SOFT AND OBESE, DENIES N/V. LBM-TODAY, LOOSE X3. VOIDS FREELY, URINAL AT BEDSIDE; PT MAY HAVE EPISODES OF URINARY INCONTINENCE. GENERALIZED WEAKNESS, BEDBOUNT, ON AIR MATTRESS, PT ABLE TO REPOSITION WITH MAX ASSIST; PT REFUSES TO BE REPOSITIONED, PT PREFERS TO BE LAYING SUPINE. DRSG TO RIGHT FOOT IN PLACE, CDI, PT REFUSED TO HAVE DRSG CHANGED OR TO HAVE SKIN FURTHER ASSESSED; PT STATES, "NOPE, THE DRSG IS STILL GOOD, MY CHANGED IT THIS MORNING." MULTIPLE SMALL OPEN WOUNDS NOTED TO BUTTOCKS/COCCYX WITH OPTIFOAM IN PLACE; SMALL OPEN WOUNDS NOTED TO GENEVIEVE POSTERIOR THIGHS, MARTHA. PT DENIES HAVING ANY PAIN AT THIS TIME. NO IV ACCESS AVAILABLE, PT REFUSING IV ACCESS, AWARE. PT ALSO REFUSES FULL ASSESSMENT. PT VERY RESISTIVE TO NURSING CARE, PT ALSO NOTED VERBALLY ABUSIVE AND YELLOW AT NURSING STAFF. NO ACUTE DISTRESS NOTED. BED IN LOWEST SETTING, SIDE RAILS UP X3, CALL LIGHT WITHIN REACH. WILL CONT TO MONITOR.
--- NOTE | 2019-03-07 23:18 | NUR ---
PT HAD MULTIPLE EPISODES OF LOOSE BMs. PT CLEANED AND OPTIFOAM PLACED. PT REFUSED TO BE TURNED OR REPOSITIONED. INSTRUCTED PT ON IMPORTANCE OF TURNING AND REPOSITIONING. PT BECAME ANGRY AND STARTED YELLING AT NURSING STAFF. NO ACUTE DISTRESS NOTED. WILL CONT TO MONITOR.
--- NOTE | 2019-03-08 01:57 | NUR ---
PT'S SPOUSE AT BEDSIDE. PT'S SPOUSE REQUESTING WOUND CARE SUPPLIES. OFFERED PT TO COMPLETE WOUND CARE TO RIGHT FOOT. PT AND PT'S SPOUSE REFUSED, PT'S SPOUSE STATES, "I NORMALLY DO IT FOR HIM." WOUND CARE SUPPLIES PROVIDED. PT AGREEABLE TO OBSERVING WOUND CARE DRSGING. OPEN WOUND NOTED TO RIGHT HEEL. PT STATES, "IT IS GETTING BETTER." WOUND CLEANSED, XEROFORM APPLIED WITH 4X4 DRSG, KERLIX, AND GREG WRAP IN PLACE. PT TOLERATED WELL. NO ACUTE DISTRESS. WILL CONT TO MONITOR.
--- NOTE | 2019-03-08 05:10 | NUR ---
PT REFUSING VS AT THIS TIME.
--- NOTE | 2019-03-08 05:50 | NUR ---
PER ADULT LITERACY INSTRUCTOR, PT REFUSING LAB DRAW AT THIS TIME AND STATES, "NOT NOW, COME IN THREE HOURS, AROUND 0830." PER ADULT LITERACY INSTRUCTOR, WILL COME BACK TO DRAW BLOOD.
--- NOTE | 2019-03-08 06:40 | NUR ---
PT SLEPT AT INTERVALS THROUGHOUT THE EVENING. BREATHING IS EVEN AND UNLABORED, NO RESP DISTRESS NOTED. PT DENIES HAVING ANY PAIN AT THIS TIME. NO ACUTE CHANGES ENCOUNTERED DURING SHIFT. PT VERY RESISTIVE TO NURSING CARE. SPOUSE AT BEDSIDE. CALL LIGHT WITHIN REACH. WILL ENDORSE CARE TO AM NURSE.
--- NOTE | 2019-03-08 07:30 | NUR ---
RECEIVED PT FROM [employer]. DID SOME ASSESSEMENT BY OBSERVATION. MOST OF THE ASSESSMENT PT REFUSED, EXPLAINED THE PURPOSE BUT GETTING ANGRY AND RAISING VOICE. SAFTEY PRECAUTIONS ARE IN PLACE. AT BEDSIDE. WILL MONITOR.
--- NOTE | 2019-03-08 07:33 | NUR ---
PT IN NO ACUTE DISTRESSED. CONTINUITY OF CARE ENDORSED TO [facility]. ALL QUESTIONS AND CONCERNS ADDRESSED.
[2019-03-08 09:25] LABS: BASOPHIL % 1.1 % (0-2)
[2019-03-08 09:31] LABS: RED CELL DISTRIBUTION WIDTH 19.8 % (11.5-14.5)
[2019-03-08 09:32] LABS: CALCIUM 7.3 mg/dL (8.5-10.1); CARBON DIOXIDE 16.7 mmol/L (21-32); CREATININE SERUM 1.8 mg/dL (0.7-1.3); POTASSIUM SERUM 3.4 mmol/L (3.5-5.1)
[2019-03-08 09:36] LABS: MAGNESIUM 1.4 mg/dL (1.8-2.4); PHOSPHOROUS 2.9 mg/dL (2.5-4.9)
--- NOTE | 2019-03-08 09:45 | NUR ---
INFORMED ABOUT H/H=6.9/21, K=3.4 AND MG=1.4. NO NEW ORDER RECEIVED THIS TIME. CHARGE NURSE AWARE.
[2019-03-08 09:51] LABS: rbc morphology (normal/abnorm) ABNORMAL (NORMAL)
[2019-03-08 09:54] LABS: PLATELET COUNT 186 x10^3mcL (130-400)
[2019-03-08 10:13] VITALS: BP 99/57
--- NOTE | 2019-03-08 11:00 | NUR ---
PT REFUSING FOR DRESSING CHANGE AT RT HEEL AND REPLACE OPTIFOAM AFTER THE BM. PT SAID HE WANT HIS TO DO DRESSING CHANGE AND SAID SHE DID DRESSING CHANGE LAST NIGHT AND SHE WILL PLACE THE OPTIFOAM TO COCCYX WITH NEXT BM. PT REFUSING FOR REPOSITIONING ALSO. EXPLAINED THE IMPORTANCE OF REPOSITIONING BUT PT REFUSED STILL.
--- NOTE | 2019-03-08 12:59 | NUR ---
PT REFUSED IV INSERTION INITIALLY BUT AFTER EXPLAINING TO HIM THE IMPORTANCE OF FLAGYL IV, HIS MADE HIM AGREE TO HAVE AN IV. INSERTED 22G IV TO LFA WITH GOOD BLOOD RETURN AND FLAGYL IVPB STARTED.
--- NOTE | 2019-03-08 17:00 | NUR ---
PT REFUSING DO VITAL SIGNS, REPOSITIONING AND ACCUCHECK. HE REFUSES MOST OF THE TREATMENT. AWARE. CHARGE NURSE AWARE.
--- NOTE | 2019-03-08 18:00 | NUR ---
FLAGY IV 1800 DOSE STARTED. PT IS NOT KEEP HIS ARM STARIGHT, ALARM GOING ON. ADVISE HIM PLEASE KEEP THE ARM REST IN THE BED BUT PT KEEP MOVING ARM AND YELLING. GETTING ANGRY AND CURSING AND ASKED TO SHUT OF THE IV. FLUSHED THE IV MULTIPLE TIME, FLUSHING WELL BUT PT KEEP MOVING THE ARM AND IV KEEP ALARMING. PT SCREAMED FOR TURN THE IV OFF. EXPLAINED TO THE PT FLAGYL NOT FINISHED AND INFORMED IMPORTANCE GETTING MEDICINE BUT PT GETTING MORE ANGRY. STOPPED IV THIS TIME. CHARGE NURSE AWARE.
[2019-03-08 19:00] LABS: IRON 104 ug/dL (65-170)
[2019-03-08 19:03] LABS: TOTAL IRON BINDING CAPACITY 129 ug/dL (250-450)
--- NOTE | 2019-03-08 19:15 | NUR ---
PT RESTING IN BED COMFORTABLY. STILL REFUSING TO FINISH FLAGYL IV, INFORMED [employer] SENIOR SERGEANT NURSE. PT ALSO SOMETIMES REFUSED Z-GAURD. REFUSED REPOSITION. DR.JAMEEL PERALES.
--- NOTE | 2019-03-08 19:17 | NUR ---
GAVE REPORT TO MARBLE INSTALLER SUPERVISOR NURSE. PT REMAINS STABLE.
--- NOTE | 2019-03-08 19:45 | NUR ---
RECEIVED PT IN BED ASLEEP BUT AROUSABLE. PT REFUSED TO BE ASSESSED AND TALKING BACK RUDELY. PT ON ROOM AIR AND DOES NOT APPEAR TO HAVE SOB WHILE AT REST. PT HAS NO C/O PAIN AT THIS TIME. W/ IV NOTED TO LTFA. PT ON CONTACT ISOLATION ORDERED.
--- NOTE | 2019-03-08 22:30 | NUR ---
PT REQUESTED TO BE TURNED TO HIS LT SIDE . PT NOTED W/ STOOL BUT REFUSED TO BE CLEANED SAYING HIS IS COMING IN AN HOUR AND SHE WILL BE THE ONE TO CLEAN HIM .
--- NOTE | 2019-03-09 | NUR ---
PT'S AT BEDSIDE AND CLEANED PT PER PT'S WISHES. OFFERED PT THE ELAVIL PO AND AGREED TO TAKE IT. PT REFUSED VANCO PO. DR. MEDEROS HERE AND SAW PT. MADE HIM AWARE THAT PT HAD LOOSE BM.
--- NOTE | 2019-03-09 03:46 | NUR ---
INFORMED DR. ULLOAED THAT PT CONTINUES TO REFUSED V/S, ACCUCHECK, VANCO PO , AND NURSING CARE.
[2019-03-09 05:13] VITALS: BP 118/52
--- NOTE | 2019-03-09 05:13 | NUR ---
PT RESTING IN BED W/ AT BEDSIDE. PT CONTINUES TO REFUSE CARE AND TREATMENTS. PT JUST WANTS HIS TO DO ALMOST ALL THE CARE HE NEEDS LIKE CLEANING AND REPOSITIONING HIM. PT VERY EASILY AGITATED BUT AGREED TO HAVE HIS VITAL SIGNS TAKEN THIS AM PER ADVISE BY AIRPLANE DESIGNER AND . PT HAD BM X3 THIS SHIFT. IVF 1/2 NS INFUSING AT 80 CC/HR VIA LTFA. CONTACT ISOLATION MAINTAINED.
[2019-03-09 06:24] LABS: CARBON DIOXIDE 12.8 mmol/L (21-32); CREATININE SERUM 2.1 mg/dL (0.7-1.3); MAGNESIUM 1.3 mg/dL (1.8-2.4); PHOSPHOROUS 3.1 mg/dL (2.5-4.9); POTASSIUM SERUM 3.4 mmol/L (3.5-5.1)
--- NOTE | 2019-03-09 06:25 | NUR ---
PT RESTLESS AND INSISTING ON PUTTYING THE BEDRAIL DOWN SO HE CAN DANGLE HIS LEGS. PT APPEARS IN SOB. PT PLACED ON O2 AT 3L. PT MOUTH BREATHING AND COACHED TO BREATH THROUGH HIS NOSE.
--- NOTE | 2019-03-09 06:40 | NUR ---
BP=72/49 HR=[address] VÁZQUEZ TO CHECK ON PT.
[2019-03-09 06:44] LABS: BASOPHIL % 0.6 % (0-2); PLATELET COUNT 214 x10^3mcL (130-400)
[2019-03-09 06:45] VITALS: BP 72/49
--- NOTE | 2019-03-09 06:45 | NUR ---
DR. VÁZQUEZ IN TO CHECK ON PT. 02 CKT=057% AT THIS TIME. [id number]=074. DR. VÁZQUEZ TO ORDER ABG.
[2019-03-09 06:59] LABS: RED CELL DISTRIBUTION WIDTH 19.6 % (11.5-14.5)
--- NOTE | 2019-03-09 07:02 | NUR ---
INFORMED DR. VÁZQUEZ REGARDING HEMOGLOBIN OF 5.8 .
--- NOTE | 2019-03-09 07:19 | NUR ---
CXR TAKEN ORDERED.
--- NOTE | 2019-03-09 07:20 | NUR ---
PT BECAME UNRESPONSIVE. BREATHING AGONAL. CALLED CODE BLUE.
--- NOTE | 2019-03-09 07:26 | NUR ---
CPR STARTED AT THIS TIME.
--- NOTE | 2019-03-09 07:26 | NUR ---
CODE ELAINA CALLED AT THIS TIME. INSTRUSTED BY CHARGE NURSE TO RECORD. RECEIVED NO REPORT OF PATIENT, PRIMARY NOC NURSE PRESENT DURING CODE.
--- NOTE | 2019-03-09 07:40 | NUR ---
BS [id number]. PT TAKEN DOWN TO ICU AT THIS TIME.
--- NOTE | 2019-03-09 07:42 | NUR ---
PATIENT ARRIVED ON UNIT S/P CARDIAC ARREST FROM ROOM 217B. PATIENT ACCOMPANIED BY SHAUN HICKMAN, DOREEN ED INTERNATIONAL PROJECT MANAGER, DR GARCIA, AND MULTIPLE OTHER MEDICAL STAFF. PATIENT REMOVED FROM PORTABLE PUBLIC INFORMATION DIRECTOR AND PLACED ON ICU PUBLIC INFORMATION DIRECTOR #4. PULSES ASSESS BY MYSELF VIA DOPPLER WITH NONE NOTED. CODE BLUE CALLED.
--- NOTE | 2019-03-09 07:55 | NUR ---
0742: PT TRANSFERRED TO ICU BED 4. 0744: UPON CHARGE NURSE ASSESSMENT NO PULSE NOTED AT THIS TIME. COMPRESSIONS INITIATED, CODE BLUE CALLED. 0745: EPINEPHRINE GIVEN IVP AND FLUSHED. 0747: SODIUM BICARB GIVEN IVP AND FLUSHED. 0748: CALCIUM GIVEN IVP AND FLUSHED. 0750: PT SUCTIONED WITH DARK BROWN EMESIS 100<. 0750: HOLD COMPRESSIONS PER AND DR GARCIA, DISCUSSING PT CODE STATUS AT THIS TIME 0751: WITHDREW CARE, PT MADE DNR AT THIS TIME.
--- NOTE | 2019-03-09 09:40 | NUR ---
PATIENT'S BRIDGET SIGNED AUTHORIZATION FOR RELEASE OF REMAINS. PATIENT'S TOOK ALL OF PATIENT'S BELONGINGS HOME AT THIS TIME.
--- NOTE | 2019-03-09 10:57 | NUR ---
0823- DR RICH AT [facility] AND CALLED TOD 0830- ROWAN FROM ADMITTING AND CARDIOVASCULAR SURGICAL TECH YANA NOTIFIED 0845- RECEIVED RETURN FROM CALL FROM [facility]. PATIENT NOT A DONOR CANDIDATE. RELEASE# [id number] 1020- RECEIVED RETURN CALL FROM MARIBEL MATAMOROS FROM CORONERS OFFICE. PATIENT UPDATE PROVIDED. BODY RELEASED TO [facility] RELEASE# [phone] 1055- ENVIRONMENTAL CONTROL ADMINISTRATOR PROVIDED POST MORTEM CARE WITH PULVERIZER MILL OPERATOR. AWAITING SECURITY TO TRANSFER PATIENT TO [facility].
[2019-03-09 11:13] LABS: rbc morphology (normal/abnorm) ABNORMAL (NORMAL)
--- NOTE | 2019-03-09 11:35 | NUR ---
LUIS FERNANDOY AT BEDSIDE AND TRANSFERRED PATIENT TO [facility] AT THIS TIME.
== END 2019-03-09 11:35 | disposition expired | DRG 720 ==
LOC: ED 17:20 → IC 20:21 → DU 02-21 17:20 → MU 02-28 07:05 → IC 03-09 08:00
PROVIDERS: Emergency Medicine; General Practice; Internal Medicine; Internal Medicine Gastroenterology; Internal Medicine Nephrology; ADMIT Internal Medicine
PROC: B244ZZZ Ultrasonography of Right Heart (ICD-10-PCS; 2019-02-17)
PROC: 02H633Z Insertion of Infusion Device into Right Atrium, Percutaneous Approach (ICD-10-PCS; 2019-02-17)
PROC: 0BH17EZ Insertion of Endotracheal Airway into Trachea, Via Natural or Artificial Opening (ICD-10-PCS; principal; 2019-03-09)
PROC: 5A1935Z Respiratory Ventilation, Less than 24 Consecutive Hours (ICD-10-PCS; 2019-03-09)
PROC: 5A12012 Performance of Cardiac Output, Single, Manual (ICD-10-PCS; 2019-03-09)
DX: A41.9 Sepsis, unspecified organism (principal); N17.0 Acute kidney failure with tubular necrosis; J96.21 Acute and chronic respiratory failure with hypoxia; J69.0 Pneumonitis due to inhalation of food and vomit; G92 Toxic encephalopathy; R65.21 Severe sepsis with septic shock; R57.9 Shock, unspecified; A04.71 Enterocolitis due to Clostridium difficile, recurrent; K92.0 Hematemesis; E44.0 Moderate protein-calorie malnutrition; E11.22 Type 2 diabetes mellitus with diabetic chronic kidney disease; E11.621 Type 2 diabetes mellitus with foot ulcer; E83.39 Other disorders of phosphorus metabolism; E11.51 Type 2 diabetes mellitus with diabetic peripheral angiopathy without gangrene; L97.415 Non-pressure chronic ulcer of right heel and midfoot with muscle involvement without evidence of necrosis; L97.411 Non-pressure chronic ulcer of right heel and midfoot limited to breakdown of skin; E87.6 Hypokalemia; E87.1 Hypo-osmolality and hyponatremia; N39.0 Urinary tract infection, site not specified; N18.3 Chronic kidney disease, stage 3 (moderate); I12.9 Hypertensive chronic kidney disease with stage 1 through stage 4 chronic kidney disease, or unspecified chronic kidney disease; I82.621 Acute embolism and thrombosis of deep veins of right upper extremity; K21.9 Gastro-esophageal reflux disease without esophagitis; E66.9 Obesity, unspecified; Z66 Do not resuscitate; Z51.5 Encounter for palliative care; Z68.38 Body mass index [BMI] 38.0-38.9, adult; Z79.84 Long term (current) use of oral hypoglycemic drugs; B96.89 Other specified bacterial agents as the cause of diseases classified elsewhere; Z91.19 Patient's noncompliance with other medical treatment and regimen; I46.9 Cardiac arrest, cause unspecified; Z88.0 Allergy status to penicillin; E86.0 Dehydration; F29 Unspecified psychosis not due to a substance or known physiological condition; G47.33 Obstructive sleep apnea (adult) (pediatric); M86.8X8 Other osteomyelitis, other site
CPT/HCPCS: 36556; 36600; 82962; 83880; 84439; 92526-GN; 92610-GN; 97110-GP; 97530-GP; A4628; C1751; G0378; G0480; J0171; J0360; J1265; J1650; J1815; J1940; J1956; J2185 ×2; J2543; J3370; J3475; J3480; J3490; J7030; J7040; J7050; J7620; P9047; Q0092